=== PATIENT | male | born 1980 | race American Indian/Alaskan Native ===

== ENCOUNTER 2016-12-12 01:19 | Emergency (ER) | payer OTHER ==
[2016-12-12 02:27] LABS: Basophils % (Auto) 0.9 % (0.0-1.8); Eosinophils % (Auto) 2.4 % (0.0-4.3); Hematocrit 39.6 % (35.5-45.6); Mean Corpuscular HGB Conc 33 % (32-34); Mean Corpuscular Hemoglobin 28 pg (28-32); Mean Corpuscular Volume 84 fl (84-94); Platelet Count 325 K/mm3 (140-440); Red Blood Count 4.72 M/mm3 (3.65-5.03); Red Cell Distribution Width 14.8 % (13.2-15.2); White Blood Count 8.9 K/mm3 (4.5-11.0)
[2016-12-12 02:33] LABS: Anion Gap 19 mmol/L; Blood Urea Nitrogen 20 mg/dL (9-20); Carbon Dioxide 22 mmol/L (22-30); Chloride 98.6 mmol/L (98-107); Glucose 100 mg/dL (75-100); Potassium 3.8 mmol/L (3.6-5.0); Sodium 136 mmol/L (137-145)
[2016-12-12 05:08] LABS: Urine Drugs of Abuse Note Disclamer
[2016-12-12 05:34] LABS: Bilirubin,Urine NEG (Negative); Blood,Urine NEG (Negative); Ketones,Urine NEG (Negative); Leukocyte Esterase,Urine NEG (Negative); Mucus,Urine 3+ /HPF; Nitrite,Urine NEG (Negative); Urobilinogen,Urine < 2.0 mg/dL (<2.0)
--- NOTE | 2016-12-12 10:18 | Emergency Department Report ---
ED Shortness of Breath HPI - General Chief Complaint: Psych Stated Complaint: MEDICINE CHECK Time Seen by Provider: 12/12/16 10:14 Source: patient Mode of arrival: Ambulatory Limitations: No Limitations - Related Data Allergies Allergy/AdvReac Type Severity Reaction Status Date / Time No Known Allergies Allergy Verified 12/12/16 01:43 ED Review of Systems ROS: Stated complaint: MEDICINE CHECK Other details as noted in HPI Constitutional: denies: chills, fever Eyes: denies: eye pain, eye discharge, vision change ENT: denies: ear pain, throat pain Respiratory: denies: cough, shortness of breath, wheezing Cardiovascular: denies: chest pain, palpitations Endocrine: no symptoms reported Gastrointestinal: denies: abdominal pain, nausea, diarrhea Genitourinary: denies: urgency, dysuria Musculoskeletal: denies: back pain, joint swelling, arthralgia Skin: denies: rash, lesions Neurological: denies: headache, weakness, paresthesias Psychiatric: denies: anxiety, depression Hematological/Lymphatic: denies: easy bleeding, easy bruising ED Past Medical Hx - Past Medical History Previous Medical History?: No - Surgical History Past Surgical History?: No - Social History Smoking Status: Never Smoker Substance Use Type: None ED Physical Exam - General Limitations: No Limitations General appearance: alert, in no apparent distress - Head Head exam: Present: atraumatic, normocephalic - Eye Eye exam: Present: normal appearance. Absent: scleral icterus - ENT ENT exam: Present: mucous membranes moist - Neck Neck exam: Present: normal inspection - Respiratory Respiratory exam: Present: wheezes, accessory muscle use. Absent: normal lung sounds bilaterally, respiratory distress - Cardiovascular Cardiovascular Exam: Present: regular rate, normal rhythm. Absent: systolic murmur, diastolic murmur, rubs, gallop - GI/Abdominal GI/Abdominal exam: Present: soft, normal bowel sounds. Absent: distended, tenderness, guarding, rebound, rigid - Rectal Rectal exam: Present: deferred - Extremities Exam Extremities exam: Present: normal inspection, normal capillary refill. Absent: tenderness, pedal edema, joint swelling, calf tenderness - Back Exam Back exam: Present: normal inspection - Neurological Exam Neurological exam: Present: alert, oriented X3, CN II-XII intact. Absent: motor sensory deficit - Psychiatric Psychiatric exam: Present: normal affect, anxious - Skin Skin exam: Present: warm, dry, intact, normal color. Absent: rash ED Course Vital Signs 12/12/16 12/12/16 12/12/16 01:43 09:16 10:37 Temperature 98.0 F 97.5 F L Pulse Rate 100 H 86 Respiratory 20 16 18 Rate Blood Pressure 131/97 Blood Pressure 128/76 [Left] O2 Sat by Pulse 97 100 Oximetry - Reevaluation(s) Reevaluation #1: 12/12/16 13:15 ED Medical Decision Making - Lab Data Result diagrams: 12/12/16 01:51 12/12/16 01:51 - EKG Data -: EKG Interpreted by Ne EKG shows normal: sinus rhythm, axis Rate: normal - EKG Data When compared to previous EKG there are: no significant change Interpretation: other (oral T-wave inversions similar to prior) Critical care attestation.: If time is entered above; I have spent that time in minutes in the direct care of this critically ill patient, excluding procedure time. ED Disposition Disposition: ELOPED Condition: Undetermined Referrals: PRIMARY CARE, [Primary Care Provider] - 3-5 Days
[2016-12-12 10:58] LABS: Creatine Kinase MB 8.4 ng/mL (0.0-4.0)
[2016-12-12] MEDS ORDERED: NACL 0.9% 1000 ML 1,000 ML IV ONE ×3 (11:34→16:19)
--- NOTE | 2016-12-12 13:26 | Emergency Department Report ---
ED Psych HPI - General Chief Complaint: Psych Stated Complaint: MEDICINE CHECK Time Seen by Provider: 12/12/16 10:14 Source: patient Mode of arrival: Ambulatory - History of Present Illness Initial Comments: Patient states that he doesn't remember the details of the last more than one day. He does admit that this might be secondary to crack cocaine abuse. He states he was just discharged from [facility]. He is on Invega. He was also given his monthly medication prior to discharge. He states he told the police that he was suicidal. He was brought to this facility for evaluation. At this time he is not complaining of being depressed or actively wanting to hurt himself. Complaint: suicidal ideation -: Gradual, month(s) Associated Psychiatric Symptoms: depression, suicidal ideation History of same: Yes Quality: intermittent Improves With: none Worsens With: none Context: recent drug abuse Associated Symptoms: denies other symptoms - Related Data Allergies Allergy/AdvReac Type Severity Reaction Status Date / Time No Known Allergies Allergy Verified 12/12/16 01:43 ED Review of Systems ROS: Stated complaint: MEDICINE CHECK Other details as noted in HPI Constitutional: denies: chills, fever Eyes: denies: eye pain, eye discharge, vision change ENT: denies: ear pain, throat pain Respiratory: denies: cough, shortness of breath, wheezing Cardiovascular: denies: chest pain, palpitations Endocrine: no symptoms reported Gastrointestinal: denies: abdominal pain, nausea, diarrhea Genitourinary: denies: urgency, dysuria Musculoskeletal: denies: back pain, joint swelling, arthralgia Skin: denies: rash, lesions Neurological: denies: headache, weakness, paresthesias Psychiatric: depression. denies: anxiety Hematological/Lymphatic: denies: easy bleeding, easy bruising ED Past Medical Hx - Past Medical History Previous Medical History?: No - Surgical History Past Surgical History?: No - Social History Smoking Status: Never Smoker Substance Use Type: Cocaine ED Physical Exam - General Limitations: No Limitations General appearance: alert, in no apparent distress - Head Head exam: Present: atraumatic, normocephalic - Eye Eye exam: Present: normal appearance, PERRL, EOMI. Absent: scleral icterus - ENT ENT exam: Present: mucous membranes moist - Neck Neck exam: Present: normal inspection - Respiratory Respiratory exam: Present: normal lung sounds bilaterally. Absent: respiratory distress - Cardiovascular Cardiovascular Exam: Present: regular rate, normal rhythm. Absent: systolic murmur, diastolic murmur, rubs, gallop - GI/Abdominal GI/Abdominal exam: Present: soft, normal bowel sounds. Absent: distended, tenderness, guarding, rebound, rigid - Rectal Rectal exam: Present: deferred - Extremities Exam Extremities exam: Present: normal inspection - Back Exam Back exam: Present: normal inspection - Neurological Exam Neurological exam: Present: alert, oriented X3, CN II-XII intact. Absent: motor sensory deficit - Psychiatric Psychiatric exam: Present: normal affect, normal mood - Skin Skin exam: Present: warm, dry, intact, normal color. Absent: rash ED Course Vital Signs 12/12/16 12/12/16 12/12/16 01:43 09:16 10:37 Temperature 98.0 F 97.5 F L Pulse Rate 100 H 86 Respiratory 20 16 18 Rate Blood Pressure 131/97 Blood Pressure 128/76 [Left] O2 Sat by Pulse 97 100 Oximetry - Reevaluation(s) Reevaluation #1: The patient will be treated with IV fluids overnight until his CK is normal. He will then be medically cleared for whatever disposition the psychiatry planning consultant feels is appropriate. 12/12/16 16:22 ED Medical Decision Making - Lab Data Result diagrams: 12/12/16 01:51 12/12/16 01:51 Laboratory Results - last 24 hr 12/12/16 12/12/16 12/12/16 01:51 01:51 01:51 WBC 8.9 RBC 4.72 Hgb 13.0 Hct 39.6 MCV 84 MCH 28 MCHC 33 RDW 14.8 Plt Count 325 Lymph % (Auto) 33.9 [place] % (Auto) 13.3 H Eos % (Auto) 2.4 Baso % (Auto) 0.9 Lymph # 3.0 [place] # 1.2 H Eos # 0.2 Baso # 0.1 Seg Neutrophils % 49.5 Seg Neutrophils # 4.4 Sodium 136 L Potassium 3.8 Chloride 98.6 Carbon Dioxide 22 Anion Gap 19 BUN 20 Creatinine 1.0 Estimated GFR > 60 BUN/Creatinine Ratio 20.00 Glucose 100 Calcium 9.0 Total Creatine Kinase CK-MB (CK-2) CK-MB (CK-2) Rel Index Urine Color Urine Turbidity Urine pH Ur Specific [place] Urine Protein Urine Glucose (UA) Urine Ketones Urine Blood Urine Nitrite Urine Bilirubin Urine Urobilinogen Ur Leukocyte Esterase Urine WBC (Auto) Urine RBC (Auto) U Epithel Cells (Auto) Hyaline Casts Urine Mucus Urine Opiates Screen Urine Methadone Screen Ur Barbiturates Screen Ur Phencyclidine Scrn Ur Amphetamines Screen U Benzodiazepines Scrn Urine Cocaine Screen U Marijuana (THC) Screen Drugs of Abuse Note Plasma/Serum Alcohol < 0.01 12/12/16 12/12/16 12/12/16 01:51 04:44 04:44 WBC RBC Hgb Hct MCV MCH MCHC RDW Plt Count Lymph % (Auto) [place] % (Auto) Eos % (Auto) Baso % (Auto) Lymph # [place] # Eos # Baso # Seg Neutrophils % Seg Neutrophils # Sodium Potassium Chloride Carbon Dioxide Anion Gap BUN Creatinine Estimated GFR BUN/Creatinine Ratio Glucose Calcium Total Creatine Kinase 2925 H CK-MB (CK-2) 8.4 H CK-MB (CK-2) Rel Index 0.2 Urine Color Yellow Urine Turbidity Clear Urine pH 5.0 Ur Specific [place] 1.035 H Urine Protein 30 mg/dl Urine Glucose (UA) Neg Urine Ketones Neg Urine Blood Neg Urine Nitrite Neg Urine Bilirubin Neg Urine Urobilinogen < 2.0 Ur Leukocyte Esterase Neg Urine WBC (Auto) 3.0 Urine RBC (Auto) 2.0 U Epithel Cells (Auto) < 1.0 Hyaline Casts 1 Urine Mucus 3+ Urine Opiates Screen Presumptive negative Urine Methadone Screen Presumptive negative Ur Barbiturates Screen Presumptive negative Ur Phencyclidine Scrn Presumptive negative Ur Amphetamines Screen Presumptive negative U Benzodiazepines Scrn Presumptive negative Urine Cocaine Screen Presumptive positive U Marijuana (THC) Screen Presumptive negative Drugs of Abuse Note Disclamer Plasma/Serum Alcohol Critical care attestation.: If time is entered above; I have spent that time in minutes in the direct care of this critically ill patient, excluding procedure time. ED Disposition Clinical Impression: Cocaine abuse, Suicidal ideation Rhabdomyolysis Qualifiers: Rhabdomyolysis type: non-traumatic Qualified Code(s): M62.82 - Rhabdomyolysis Depression Qualifiers: Depression Type: unspecified Qualified Code(s): F32.9 - Major depressive disorder, single episode, unspecified Disposition: ELOPED Is pt being admited?: No Does the pt Need Aspirin: No Condition: Undetermined Referrals: PRIMARY CARE, [Primary Care Provider] - 3-5 Days Time of Disposition: 16:22
[2016-12-12 15:06] LABS: Creatine Kinase MB 4.8 ng/mL (0.0-4.0)
[2016-12-13 09:28] LABS: Creatine Kinase MB 3.6 ng/mL (0.0-4.0)
[2016-12-13 09:29] LABS: Anion Gap 14 mmol/L; Blood Urea Nitrogen 9 mg/dL (9-20); Calcium 8.4 mg/dL (8.4-10.2); Carbon Dioxide 24 mmol/L (22-30); Chloride 102.4 mmol/L (98-107); Creatine Kinase 676 units/L (55-170); Glucose 94 mg/dL (75-100); Potassium 4.1 mmol/L (3.6-5.0); Sodium 136 mmol/L (137-145)
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
[2016-12-13] MEDS: COGENTIN PO SCH ×2 (18:45→22:05)
[2016-12-13] MEDS: REMERON PO SCH (22:05)
[2016-12-14] MEDS: COGENTIN PO SCH ×2 (09:41→22:30)
[2016-12-14] MEDS: REMERON PO SCH (22:30)
[2016-12-15] MEDS: COGENTIN PO SCH ×2 (10:47→22:09)
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
[2016-12-15] MEDS: MINIPRESS PO SCH (22:04)
[2016-12-15] MEDS: REMERON PO SCH (22:09)
--- NOTE | 2016-12-16 09:01 | Progress Note ---
Subjective - Reason for Consult Consult date: 12/16/16 Reason for consult: Psychiatry Follow-up - Chief Complaint Chief complaint: "I got some sleep last night" 36 year old AA male seen for psychiatric evaluation in the ER. He was discharged from [facility] one week ago. He was treated for depression and auditory hallucinations. Today patient is calm and cooperative during the assessment. He stated that the SI's has "decreased." He denies AH's and stated that he slept for 6 hours last night. Patient is more engaging and not withdrawn per previous assessment. He denies HI's and AVH's. He rate his depression 3/10, with 10 being the worse. He denies any side effects of his medications. Mental Status Exam - Vital signs Last Vital Signs Temp 98.4 F 12/15/16 20:03 Pulse 87 12/15/16 22:04 Resp 16 12/15/16 20:03 BP 112/86 12/15/16 22:04 Pulse Ox 97 12/15/16 20:03 - Exam Narrative exam: MSE: Appearance: calm, cooperative Behavior: regular eye contact Speech: regular rate and tone Mood: "better" Affect: congruent to mood Thought Process: circumstantial Thought Content: denies HI's and AVH's Motor Activity: ambulatory Cognition: A/O x3 Insight: variable Judgment: variable Assessment and Plan Impression: Historical Dx: Schizoaffective DO, depressed type and PTSD. Substance Use DO (cocaine). Today patient is calm and cooperative during the assessment. No involuntary movement or restlessness noted. Recommendation/Plan: Continue 1013 and transfer to inpatient psychiatric facility. Hold any antipsychotics. He had Invega Sustenna 234mg IM one week ago , his first injection. Continue Cogentin 1 mg PO BID for EPS prevention, Remeron 15 mg PO HS for depression/sleep/PTSD, and Prazosin 1 mg PO HS for PTSD symptoms (nightmares). Discussed the risk/benefits of Invega with patient.
[2016-12-16] MEDS: COGENTIN PO SCH ×2 (09:58→22:15)
[2016-12-16] MEDS: REMERON PO SCH (22:15)
[2016-12-16] MEDS: MINIPRESS PO SCH (22:50)
[2016-12-17] MEDS: COGENTIN PO SCH ×2 (11:45→22:43)
[2016-12-17] MEDS: REMERON PO SCH (22:43)
[2016-12-17] MEDS: MINIPRESS PO SCH (22:43)
--- NOTE | 2016-12-18 11:16 | Progress Note ---
Subjective - Reason for Consult Consult date: 12/18/16 Reason for consult: Psychiatry Follow-up - Chief Complaint Chief complaint: "I am ready to be discharged" 36 year old AA male seen for psychiatric evaluation in the ER. He was discharged from [facility] one week ago. He was treated for depression and auditory hallucinations. Today patient is calm and cooperative during the assessment. He stated that the SI's has "ceased." He stated that he feel "okay" to be discharged and return to residence at [place]. Patient has involuntary movement and reports restlessness. He denies SI/HI's, AVH's, and depression. Mental Status Exam - Vital signs Last Vital Signs Temp 98.4 F 12/17/16 19:50 Pulse 82 12/17/16 19:50 Resp 20 12/17/16 19:50 BP 119/81 12/17/16 19:50 Pulse Ox 100 12/17/16 19:50 - Exam Narrative exam: MSE: Appearance: calm, cooperative Behavior: regular eye contact Speech: regular rate and tone Mood: "okay" Affect: congruent to mood Thought Process: linear Thought Content: denies SI/HI's and AVH's Motor Activity: ambulatory Cognition: A/O x3 Insight: fair Judgment: fair Assessment and Plan Impression: Historical Dx: Schizoaffective DO, depressed type and PTSD. Substance Use DO (cocaine). Today patient is calm and cooperative during the assessment. Observed involuntary movement and restlessness. Recommendation/Plan: Evaluate 1013 in 24 hours to determine proper dispo. Hold any antipsychotics. He had Invega Sustenna 234mg IM one week ago, his first injection. Continue Cogentin 1 mg PO BID for EPS prevention, Remeron 15 mg PO HS for depression/sleep/PTSD, and Prazosin 1 mg PO HS for PTSD symptoms ( nightmares). Start Propanolol 10 mg QAM for Akathisia. Discussed the risk/ benefits of Invega with patient.
[2016-12-18] MEDS: COGENTIN PO SCH ×2 (11:25→22:40)
[2016-12-18] MEDS ORDERED: INDERAL LA PO SCH (15:52)
[2016-12-18] MEDS ORDERED: INDERAL PO SCH (17:30)
[2016-12-18] MEDS: MINIPRESS PO SCH (22:40)
[2016-12-18] MEDS: REMERON PO SCH (22:40)
[2016-12-19] MEDS ORDERED: INDERAL LA PO SCH ×2 (10:00→15:46)
[2016-12-19] MEDS: COGENTIN PO SCH (11:53)
--- NOTE | 2016-12-19 12:29 | Progress Note ---
Subjective - Reason for Consult Consult date: 12/19/16 Reason for consult: Psychhiatry Follow-up - Chief Complaint Chief complaint: "Thanks for everything" 36 year old AA male seen for psychiatric evaluation in the ER. He was discharged from [facility] one week ago. He was treated for depression and auditory hallucinations. Today patient is calm and cooperative during the assessment. He wanted to thank the [facility] staff for being nice to him. He stated that he felt like the staff cared for his "well being." He stated that he would need a referral for outpatient psy/rehab services. He denies SI/HI's, AVH's and depression. He stated that he would like to return to his residence at [place] once discharged. Mental Status Exam - Vital signs Last Vital Signs Temp 98.9 F 12/18/16 22:40 Pulse 55 L 12/18/16 22:40 Resp 16 12/18/16 22:41 BP 101/65 12/18/16 22:40 Pulse Ox 99 12/18/16 22:40 - Exam Narrative exam: MSE: Appearance: calm, cooperative Behavior: regular eye contact Speech: regular rate and tone Mood: "okay" Affect: congruent to mood Thought Process: linear Thought Content: denies SI/HI's and AVH's Motor Activity: ambulatory Cognition: A/O x3 Insight: fair Judgment: fair Assessment and Plan Impression: Historical Dx: Schizoaffective DO, depressed type and PTSD. Substance Use DO (cocaine). Today patient is calm and cooperative during the assessment. No involuntary movement and restlessness. Patient is no threat to self. Recommendation/Plan: Rescind 1013. He had Invega Sustenna 234mg IM one week ago , his first injection. Continue Cogentin 1 mg PO BID for EPS prevention and Remeron 15 mg PO HS for depression/sleep/PTSD. Patient given outpatient psy services information for [facility]. Patient's Invega injection can be managed at [facility].
[2016-12-19 19:08] VITALS: BP 105/70
== END 2016-12-19 19:14 | disposition home or self-care (01) ==
LOC: EEVIPCON 01:19 → ED 01:19
DX: F32.9 Major depressive disorder, single episode, unspecified (principal); M62.82 Rhabdomyolysis; F14.10 Cocaine abuse, uncomplicated
CPT/HCPCS: 36415; 80048; 80307; 81001; 82550; 82553; 85025; 96360; 96361; 99284; G0480; J7030; 80320

== ENCOUNTER 2016-12-22 04:48 | Emergency (ER) | payer SELFPAY ==
--- NOTE | 2016-12-22 07:45 | XRay Report ---
RIGHT ANKLE, 2 views: History: Right ankle pain. Findings: Mild soft tissue swelling is identified. No acute osseous abnormality or joint pathology is identified. The fifth metatarsal base is intact. Impression: Soft tissue swelling. No acute osseous injury.
[2016-12-22] MEDS ORDERED: TORADOL IM ONE (09:19)
--- NOTE | 2016-12-22 09:23 | Emergency Department Report ---
ED Lower Extremity HPI - General Chief Complaint: Extremity Injury, Lower Stated Complaint: RIGHT ANKLE PAIN Time Seen by Provider: 12/22/16 09:08 Source: patient Mode of arrival: Ambulatory Limitations: No Limitations - History of Present Illness Initial Comments: Patient presents here with complaints of injury to right ankle 4 hours prior to arrival. Patient was stepping off a curb and had a misstep resulting in an inversion of his right ankle. Injury to same right ankle 3 weeks ago.. Complaint: ankle injury (right) -: Sudden, hour(s) (4) Injury: Ankle: Right (inversion injury) Type of Injury: inversion Place: street/outdoors Severity: moderate Severity scale (0 -10): 8 Improves With: immobilization Worsens With: weight bearing, movement, palpation Associated Symptoms: swelling, able to partially bear weight - Related Data Previous Rx's Medication Instructions Recorded Last Taken Type Benztropine [Cogentin] 1 mg PO BID #60 tab 12/19/16 Unknown Rx Mirtazapine [Remeron] 15 mg PO QHS #30 tablet 12/19/16 Unknown Rx Butenafine HCl [Lotrimin Ultra] 30 gm TP BID #1 tube 12/22/16 Unknown Rx Ibuprofen [Motrin 800 MG tab] 800 mg PO Q8HR PRN #30 tablet 12/22/16 Unknown Rx Methocarbamol [Robaxin TAB] 1,500 mg PO Q8H #30 tablet 12/22/16 Unknown Rx Allergies Allergy/AdvReac Type Severity Reaction Status Date / Time No Known Allergies Allergy Verified 12/12/16 01:43 ED Review of Systems ROS: Stated complaint: RIGHT ANKLE PAIN Other details as noted in HPI Comment: All other systems reviewed and negative Constitutional: denies: chills, fever, malaise Eyes: denies: eye pain, eye discharge, vision change ENT: denies: throat pain, dental pain, hearing loss Respiratory: denies: cough, shortness of breath, SOB with exertion Cardiovascular: denies: chest pain, palpitations, dyspnea on exertion, edema Endocrine: no symptoms reported Gastrointestinal: denies: nausea, vomiting, diarrhea, constipation Genitourinary: denies: dysuria Musculoskeletal: as per HPI, joint swelling (rt ankle). denies: back pain, myalgia Skin: denies: lesions, change in hair/nails Neurological: denies: weakness, numbness, paresthesias ED Past Medical Hx - Past Medical History Hx Pulmonary Embolism: No Hx GERD: No Hx Renal Disease: No Hx of Cancer: No Hx Sickle Cell Disease: No Hx Arthritis: Yes Hx Headaches / Migraines: No Hx Psychiatric Treatment: Yes (Anxiety, PTSD, Schizophrenia) - Surgical History Past Surgical History?: No - Social History Smoking Status: Current Every Day Smoker Substance Use Type: None - Medications Home Medications: Home Medications Medication Instructions Recorded Confirmed Last Taken Type Benztropine [Cogentin] 1 mg PO BID #60 tab 12/19/16 Unknown Rx Mirtazapine [Remeron] 15 mg PO QHS #30 tablet 12/19/16 Unknown Rx Butenafine HCl [Lotrimin Ultra] 30 gm TP BID #1 tube 12/22/16 Unknown Rx Ibuprofen [Motrin 800 MG tab] 800 mg PO Q8HR PRN #30 tablet 12/22/16 Unknown Rx Methocarbamol [Robaxin TAB] 1,500 mg PO Q8H #30 tablet 12/22/16 Unknown Rx ED Physical Exam - General Limitations: No Limitations General appearance: alert, in distress (mild to moderate distress) - Head Head exam: Present: atraumatic, normocephalic, normal inspection - Eye Eye exam: Present: normal appearance, PERRL - ENT ENT exam: Present: normal exam, normal orophraynx, mucous membranes moist - Neck Neck exam: Present: normal inspection, full ROM. Absent: tenderness, meningismus, lymphadenopathy - Respiratory Respiratory exam: Present: normal lung sounds bilaterally. Absent: respiratory distress, wheezes, rales - Cardiovascular Cardiovascular Exam: Present: regular rate, normal rhythm, normal heart sounds. Absent: bradycardia, systolic murmur, diastolic murmur - GI/Abdominal GI/Abdominal exam: Present: soft, normal bowel sounds. Absent: tenderness, guarding, rebound, rigid, organomegaly, bruit, pulsatile mass - Rectal Rectal exam: Present: deferred - Expanded Lower Extremity Exam Right Hip exam: Present: normal inspection, full ROM. Absent: tenderness, laceration , ecchymosis, deformity Upper Leg exam: Present: normal inspection, full ROM. Absent: abrasion, laceration Knee exam: Present: normal inspection, full ROM. Absent: tenderness, swelling, dislocation, erythema, effusion Lower Leg exam: Present: normal inspection, full ROM. Absent: tenderness, laceration, ecchymosis Ankle exam: Present: tenderness, swelling. Absent: abrasion, ecchymosis Foot/Toe exam: Present: normal inspection, full ROM. Absent: tenderness, swelling, dislocation Neuro vascular tendon exam: Present: no vascular compromise Gait: Positive: not tested/not observed - Back Exam Back exam: Present: normal inspection, full ROM. Absent: tenderness, CVA tenderness (L), muscle spasm - Neurological Exam Neurological exam: Present: alert, oriented X3, CN II-XII intact ED Course Vital Signs 12/22/16 05:23 Temperature 98.2 F Pulse Rate 95 H Respiratory 18 Rate Blood Pressure 113/77 O2 Sat by Pulse 97 Oximetry - Reevaluation(s) Reevaluation #1: 12/22/16 10:46 slightly better Critical Care Time: No Critical care attestation.: If time is entered above; I have spent that time in minutes in the direct care of this critically ill patient, excluding procedure time. ED Disposition Clinical Impression: Inversion sprain of right ankle, Athletes foot Is pt being admited?: No Does the pt Need Aspirin: No Condition: Stable Instructions: Ankle Sprain (ED), Crutch Instructions (ED), Tinea Pedis (ED) Additional Instructions: Nonweight bearing on your right ankle use crutches for gait support. Follow with orthopedic surgeon. Prescriptions: Butenafine HCl [Lotrimin Ultra] 30 gm TP BID #1 tube Ibuprofen [Motrin 800 MG tab] 800 mg PO Q8HR PRN #30 tablet PRN Reason: Pain, Moderate (4-6) Methocarbamol [Robaxin TAB] 1,500 mg PO Q8H #30 tablet Referrals: LAVINIA RIVERA MD [Staff Physician] - 3-5 Days (Call office for an appointment) PRIMARY MD JONES [Primary Care Provider] - 3-5 Days Time of Disposition: 10:49
[2016-12-22] MEDS: ROBAXIN PO SCH ×3 (09:45→10:08)
[2016-12-22 11:35] VITALS: BP 114/77
== END 2016-12-22 11:41 | disposition home or self-care (01) ==
LOC: ED 04:48
DX: S93.401A Sprain of unspecified ligament of right ankle, initial encounter (principal); B35.3 Tinea pedis; M19.90 Unspecified osteoarthritis, unspecified site; F17.200 Nicotine dependence, unspecified, uncomplicated; X58.XXXA Exposure to other specified factors, initial encounter; Y93.89 Activity, other specified; Y99.9 Unspecified external cause status; Y92.89 Other specified places as the place of occurrence of the external cause
CPT/HCPCS: 29515; 73600; 96372; 99283; J1885

== ENCOUNTER → 2017-01-17 | Emergency (ER) | payer OTHER ==
[~2017-01-17] MED LIST: BENADRYL PO ONE; BENADRYL PO PRN; COGENTIN PO ONE; RisperDAL PO SCH
--- NOTE | 2017-01-17 12:13 | Emergency Department Report ---
<ANETA ARMENDARIZ - Last Filed: 01/17/17 13:56> ED Psych HPI - General Chief Complaint: Psych Stated Complaint: 1013 Time Seen by Provider: 01/17/17 12:09 Source: patient, police Mode of arrival: Ambulatory Limitations: No Limitations - History of Present Illness Initial Comments: 36YO MALE WITH H/O PTSD, SCHIZOAFFECTIVE DISORDER, ANXIETY HERE WITH C/O SUICIDAL IDEATION AND DEPRESSION FOR MORE THAN 3 DAYS. PT STATED THAT HE WAS RECENTLY HOSPITALIZED AND NEED TO BE READMITTED. HE ADMITS TO AUDITORY AND VISUAL HALLUCINATIONS. WILL KILL HIMSELF BUT HAS NOT DEFINITE PLANS OF WHAT HE WILL USE. MD Complaint: suicidal ideation, feels depressed -: Gradual, days(s) (3) Associated Psychiatric Symptoms: depression, suicidal ideation, auditory hallucinations, visual hallucinations History of same: Yes Quality: constant Improves With: medication Worsens With: none Context: recent drug abuse Associated Symptoms: denies other symptoms Treatments Prior to Arrival: none - Related Data Previous Rx's Medication Instructions Recorded Last Taken Type Benztropine [Cogentin] 1 mg PO BID #60 tab 12/19/16 Unknown Rx Mirtazapine [Remeron] 15 mg PO QHS #30 tablet 12/19/16 Unknown Rx Butenafine HCl [Lotrimin Ultra] 30 gm TP BID #1 tube 12/22/16 Unknown Rx Ibuprofen [Motrin 800 MG tab] 800 mg PO Q8HR PRN #30 tablet 12/22/16 Unknown Rx Methocarbamol [Robaxin TAB] 1,500 mg PO Q8H #30 tablet 12/22/16 Unknown Rx Benztropine [Cogentin] 1 mg PO HS #30 tab 01/14/17 Unknown Rx Gabapentin [Neurontin] 300 mg PO Q8HR #60 capsule 01/14/17 Unknown Rx Mirtazapine [Remeron] 7.5 mg PO HS #30 tablet 01/14/17 Unknown Rx risperiDONE [RisperDAL] 3 mg PO HS #30 tablet 01/14/17 Unknown Rx Allergies Allergy/AdvReac Type Severity Reaction Status Date / Time No Known Allergies Allergy Verified 12/12/16 01:43 ED Review of Systems ROS: Stated complaint: 1013 Other details as noted in HPI Constitutional: denies: chills, fever Eyes: denies: eye pain, eye discharge, vision change ENT: denies: ear pain, throat pain Respiratory: denies: cough, shortness of breath, wheezing Cardiovascular: denies: chest pain, palpitations Endocrine: no symptoms reported Gastrointestinal: denies: abdominal pain, nausea, diarrhea Genitourinary: denies: urgency, dysuria Musculoskeletal: denies: back pain, joint swelling, arthralgia Skin: denies: rash, lesions Neurological: denies: headache, weakness, paresthesias Psychiatric: denies: anxiety, depression Hematological/Lymphatic: denies: easy bleeding, easy bruising ED Past Medical Hx - Past Medical History Hx Pulmonary Embolism: No Hx GERD: No Hx Renal Disease: No Hx Sickle Cell Disease: No Hx Arthritis: Yes Hx Headaches / Migraines: No Hx Psychiatric Treatment: Yes (Anxiety, PTSD, Schizophrenia) - Social History Smoking Status: Current Every Day Smoker Substance Use Type: Alcohol - Medications Home Medications: Home Medications Medication Instructions Recorded Confirmed Last Taken Type Benztropine [Cogentin] 1 mg PO BID #60 tab 12/19/16 01/10/17 Unknown Rx Mirtazapine [Remeron] 15 mg PO QHS #30 tablet 12/19/16 01/10/17 Unknown Rx Butenafine HCl [Lotrimin Ultra] 30 gm TP BID #1 tube 12/22/16 01/10/17 Unknown Rx Ibuprofen [Motrin 800 MG tab] 800 mg PO Q8HR PRN #30 tablet 12/22/16 01/10/17 Unknown Rx Methocarbamol [Robaxin TAB] 1,500 mg PO Q8H #30 tablet 12/22/16 01/10/17 Unknown Rx Benztropine [Cogentin] 1 mg PO HS #30 tab 01/14/17 Unknown Rx Gabapentin [Neurontin] 300 mg PO Q8HR #60 capsule 01/14/17 Unknown Rx Mirtazapine [Remeron] 7.5 mg PO HS #30 tablet 01/14/17 Unknown Rx risperiDONE [RisperDAL] 3 mg PO HS #30 tablet 01/14/17 Unknown Rx ED Physical Exam - General Limitations: No Limitations General appearance: alert, in no apparent distress - Head Head exam: Present: atraumatic, normocephalic - Eye Eye exam: Present: normal appearance - ENT ENT exam: Present: mucous membranes moist - Neck Neck exam: Present: normal inspection - Respiratory Respiratory exam: Present: normal lung sounds bilaterally. Absent: respiratory distress - Cardiovascular Cardiovascular Exam: Present: regular rate, normal rhythm. Absent: systolic murmur, diastolic murmur, rubs, gallop - GI/Abdominal GI/Abdominal exam: Present: soft, normal bowel sounds - Rectal Rectal exam: Present: deferred - Extremities Exam Extremities exam: Present: normal inspection, full ROM - Back Exam Back exam: Present: normal inspection - Neurological Exam Neurological exam: Present: alert, oriented X3, CN II-XII intact - Psychiatric Psychiatric exam: Present: normal affect, depressed, flat affect, other (NOT VERY COOPERATIVE). Absent: normal mood - Skin Skin exam: Present: warm, dry, intact, normal color. Absent: rash ED Course Vital Signs 01/17/17 01/17/17 01/17/17 08:22 09:00 16:19 Temperature 98.4 F 98.4 F Pulse Rate 86 86 Respiratory 18 18 20 Rate Blood Pressure 100/58 Blood Pressure 100/58 [Left] O2 Sat by Pulse 100 100 100 Oximetry Critical care attestation.: If time is entered above; I have spent that time in minutes in the direct care of this critically ill patient, excluding procedure time. ED Disposition Clinical Impression: Suicidal ideations, Psychosis Disposition: [id number]/TX-[id number] PSY HOSP/PSY UNIT Is pt being admited?: Yes Does the pt Need Aspirin: No Condition: Stable Referrals: PRIMARY CARE, [Primary Care Provider] - 3-5 Days <ARIANA PELAYO - Last Filed: 01/17/17 17:36> ED Course - Reevaluation(s) Reevaluation #1: 01/17/17 17:35 Patient is medically cleared for psychiatric evaluation ED Medical Decision Making - Lab Data Result diagrams: 01/17/17 15:31 01/17/17 15:31 Critical Care Time: No ED Disposition Is pt being admited?: Yes Does the pt Need Aspirin: No Time of Disposition: 17:36
[2017-01-17 15:59] LABS: Hematocrit 41.1 % (35.5-45.6); Hemoglobin 13.1 gm/dl (11.8-15.2); Mean Corpuscular HGB Conc 32 % (32-34); Mean Corpuscular Hemoglobin 27 pg (28-32); Mean Corpuscular Volume 84 fl (84-94); Platelet Count 294 K/mm3 (140-440); Red Blood Count 4.87 M/mm3 (3.65-5.03); Red Cell Distribution Width 14.4 % (13.2-15.2); White Blood Count 5.9 K/mm3 (4.5-11.0)
[2017-01-17 16:07] LABS: Urine Drugs of Abuse Note Disclamer
[2017-01-17 16:20] LABS: Bilirubin,Urine NEG (Negative); Blood,Urine NEG (Negative); Ketones,Urine NEG (Negative); Leukocyte Esterase,Urine NEG (Negative); Mucus,Urine 3+ /HPF; Nitrite,Urine NEG (Negative); Protein,Urine <15 mg/dL mg/dL (Negative)
[2017-01-17 16:44] LABS: Alanine Aminotransferase 21 units/L (7-56); Albumin 3.9 g/dL (3.9-5); Albumin/Globulin Ratio 1.4 %; Alkaline Phosphatase 86 units/L (35-129); Anion Gap 15 mmol/L; BUN/Creatinine Ratio 16; Blood Urea Nitrogen 16 mg/dL (9-20); Calcium 8.9 mg/dL (8.4-10.2); Carbon Dioxide 28 mmol/L (22-30); Glucose 98 mg/dL (75-100); Potassium 4.4 mmol/L (3.6-5.0); Sodium 141 mmol/L (137-145); Total Protein 6.6 g/dL (6.3-8.2)
[2017-01-17 16:56] LABS: Basophils % (Manual) 0 % (0.0-1.8); Blastocytes % (Manual) 0 %
[2017-01-17 17:11] LABS: Diff Status Complete; Ovalocytes 1+; Poikilocytosis Few
--- NOTE | 2017-01-18 16:27 | Consultation ---
History of Present Illness - Reason for Consult Consult date: 01/18/17 Reason for consult: psychiatric evaluation - Chief Complaint Chief complaint: "Walking on ." 36 year old AA male seen for psychiatric evaluation in the ER. He was discharged from [facility] in the middle of November. He then came to 12/12/2016 where he was later discharged back to [facility]. Currently he reports suicidal ideation and was found by police walking in traffic on . He reports AH telling him to harm himself. He states he will have to leave [facility] because the person in charge of the unit can no longer have clients. He states he cannot get to his appointments for his medications. He is 10 days past due for Invega Sustenna. He reports being previously diagnosed with schizoaffective disorder, depressed type. Urine drug screen is positive for cocaine and was during his november visit as well. - Past Medical History Past Medical History: No medical history - past Psychiatric treatment and history psychiatric treatment history: He was at 12/12/2016 for mental health reasons. He was trying to get his second Invega Sustenna injection. multiple hospitalizations and suicide attempts multiple past medication trials; zyprexa was helpful - Social History Social history: resides at [facility]. uses cocaine - Exam Orientation: time, place, person Affect: depressed Mood: congruent with affect Thought content: paranoia, suicidal ideation. No HI Thought Process: logical Perceptions: AH to harm himself Speech: normal rate and pattern Concentration: focused Motor activity: WNL Level of consciousness: alert Memory: Recent Impaired Sleep Symptoms: Insomnia Appetite: decreased Interaction: cooperative Assessment and plan: Impression: suicidal ideation with a plan cocaine use d/o per the record schizoaffective disorder, depressed type by history Recommendation: 1013 and transfer to inpatient psychiatric facility He is 10 days overdue for Invega Sustenna Start risperdal 3mg hs for psychotic symptoms and remeron 7.5mg hs for sleep Start benadryl 50mg hs prn sleep or eps symptoms Medications and Allergies Allergies Allergy/AdvReac Type Severity Reaction Status Date / Time No Known Allergies Allergy Verified 12/12/16 01:43 Home Medications Medication Instructions Recorded Confirmed Last Taken Type Benztropine [Cogentin] 1 mg PO BID #60 tab 12/19/16 01/10/17 Unknown Rx Mirtazapine [Remeron] 15 mg PO QHS #30 tablet 12/19/16 01/10/17 Unknown Rx Butenafine HCl [Lotrimin Ultra] 30 gm TP BID #1 tube 12/22/16 01/10/17 Unknown Rx Ibuprofen [Motrin 800 MG tab] 800 mg PO Q8HR PRN #30 tablet 12/22/16 01/10/17 Unknown Rx Methocarbamol [Robaxin TAB] 1,500 mg PO Q8H #30 tablet 12/22/16 01/10/17 Unknown Rx Benztropine [Cogentin] 1 mg PO HS #30 tab 01/14/17 Unknown Rx Gabapentin [Neurontin] 300 mg PO Q8HR #60 capsule 01/14/17 Unknown Rx Mirtazapine [Remeron] 7.5 mg PO HS #30 tablet 01/14/17 Unknown Rx risperiDONE [RisperDAL] 3 mg PO HS #30 tablet 01/14/17 Unknown Rx Mental Status Exam - Vital signs Last Vital Signs Temp 98.5 F 01/18/17 08:10 Pulse 76 01/18/17 08:10 Resp 20 01/18/17 08:10 BP 110/57 01/18/17 08:10 Pulse Ox 100 01/18/17 08:10 Results Result Diagrams: 01/17/17 15:31 01/17/17 15:31 Abnormal lab results 01/17/17 01/17/17 Range/Units 15:31 15:31 Lymphocytes % (Manual) 36.0 H (13.4-35.0) % Monocytes % (Manual) 15.0 H (0.0-7.3) % Eosinophils % (Manual) 5.0 H (0.0-4.3) % Monocytes # (Manual) 0.9 H (0.0-0.8) K/mm3 AST 41 H (5-40) units/L All other labs normal.
[2017-01-19] MEDS: REMERON PO SCH ×2 (00:30→22:00)
--- NOTE | 2017-01-19 15:18 | Progress Note ---
Subjective - Reason for Consult Consult date: 01/19/17 Reason for consult: Psychiatry Follow-up - Chief Complaint Chief complaint: "I am not doing well" 36 year old AA male seen for psychiatric evaluation in the ER. He was discharged from [facility] in the middle of November. He then came to 12/12/2016 where he was later discharged back to [facility]. Currently he reports suicidal ideation and was found by police walking [place] traffic on [address] This patient is known to me. Today patient is calm and cooperative during the assessment. He stated that the voices are still active, but decreasing. He stated that they were telling him to kill himself. He still endorse SI's by wanting to walk into ongoing traffic. He denies HI's and VH's. He stated that he is experiencing involuntary LE movement. Mental Status Exam - Vital signs Last Vital Signs Temp 98.7 F 01/19/17 08:59 Pulse 72 01/19/17 08:59 Resp 16 01/19/17 09:00 BP 106/71 01/19/17 08:59 Pulse Ox 99 01/19/17 09:00 - Exam Narrative exam: MSE: Appearance: calm, cooperative Behavior: regular eye contact Speech: regular rate and tone Mood: labile Affect: flat Thought Process: circumstantial Thought Content: denies HI's and VH's Motor Activity: ambulatory, LE involuntary movement Cognition: A/O x3 Insight: variable Judgment: poor Assessment and Plan Impression: Historical Dx: Schizoaffective DO. Unspecified Mood DO with psy features. Substance Use DO (cocaine). Today patient is calm and cooperative during the assessment. Patient experiencing LE involuntary movement (possibly akathisia). DDx: Substance Induced Mood DO Recommendation/Plan: Continue 1013 with placement to inpatient psy services. Modify Risperdal to 1 mg PO HS for mood/psychosis, start Cogentin 0.5 mg PO HS for EPS prevention, and continue Remeron 7.5 mg PO HS for sleep consolidation. Discussed possible metabolic side effects of Risperdal with patient. Discussed possible suicidality/medication induced annita with patient.
[2017-01-19] MEDS: COGENTIN PO SCH (21:59)
[2017-01-19] MEDS: RisperDAL PO SCH (22:00)
--- NOTE | 2017-01-20 11:21 | Progress Note ---
Subjective - Reason for Consult Consult date: 01/20/17 Reason for consult: Psychiatry Follow-up - Chief Complaint Chief complaint: "I am not doing well" 36 year old AA male seen for psychiatric evaluation in the ER. He was discharged from [facility] in the middle of November. He then came to 12/12/2016 where he was later discharged back to [facility]. Currently he reports suicidal ideation and was found by police walking in traffic on [address] This patient is known to me. Today patient is calm and cooperative during the assessment. He stated that the voices are still active, but decreasing. He stated that they were telling him to kill himself. He still endorse SI's by wanting to walk into ongoing traffic. He denies HI's and VH's. He stated that he is experiencing involuntary LE movement. Mental Status Exam - Vital signs Last Vital Signs Temp 98.6 F 01/19/17 20:13 Pulse 70 01/19/17 20:13 Resp 16 01/19/17 20:13 BP 115/76 01/19/17 20:13 Pulse Ox 100 01/19/17 20:13 - Exam Narrative exam: MSE: Appearance: calm, cooperative Behavior: regular eye contact Speech: regular rate and tone Mood: labile Affect: flat Thought Process: circumstantial Thought Content: denies HI's and VH's Motor Activity: ambulatory Cognition: A/O x3 Insight: variable Judgment: poor Assessment and Plan Impression: Historical Dx: Schizoaffective DO. Unspecified Mood DO with psy features. Substance Use DO (cocaine). Today patient is calm and cooperative during the assessment. Patient experiencing LE involuntary movement (possibly akathisia). DDx: Substance Induced Mood DO Recommendation/Plan: Continue 1013 with placement to inpatient psy services. Modify Risperdal to 1 mg PO HS for mood/psychosis, start Cogentin 0.5 mg PO HS for EPS prevention, and continue Remeron 7.5 mg PO HS for sleep consolidation. Discussed possible metabolic side effects of Risperdal with patient. Discussed possible suicidality/medication induced annita with patient.
--- NOTE | 2017-01-20 11:22 | Progress Note ---
Subjective - Reason for Consult Consult date: 01/20/17 Reason for consult: Psychiatry Follow-up - Chief Complaint Chief complaint: "I slept more hours last night" 36 year old AA male seen for psychiatric evaluation in the ER. He was discharged from [facility] in the middle of November. He then came to 12/12/2016 where he was later discharged back to [facility]. Currently he reports suicidal ideation and was found by police walking in traffic on [address]. This patient is known to me. Today patient is calm and cooperative during the assessment. He stated that he slept 5 hours, more than the previous night. He still endorse SI's and AH's. He stated that the voices are telling him to kill himself by walking into ongoing traffic. He denies HI's and VH's. He denies any side effects of his medications. Mental Status Exam - Vital signs Last Vital Signs Temp 98.6 F 01/19/17 20:13 Pulse 70 01/19/17 20:13 Resp 16 01/19/17 20:13 BP 115/76 01/19/17 20:13 Pulse Ox 100 01/19/17 20:13 - Exam Narrative exam: MSE: Appearance: calm, cooperative, disheveled Behavior: regular eye contact Speech: regular rate and tone Mood: labile Affect: flat Thought Process: circumstantial Thought Content: denies HI's and VH's Motor Activity: ambulatory Cognition: A/O x3 Insight: variable Judgment: poor Assessment and Plan Impression: Historical Dx: Schizoaffective DO. Unspecified Mood DO with psy features. Substance Use DO (cocaine). Today patient is calm and cooperative during the assessment. DDx: Substance Induced Mood DO Recommendation/Plan: Continue 1013 with placement to inpatient psy services. Continue Risperdal to 1 mg PO HS for mood/psychosis, Cogentin 0.5 mg PO HS for EPS prevention, and Remeron 7.5 mg PO HS for sleep consolidation. Discussed possible metabolic side effects of Risperdal with patient. Discussed possible suicidality/medication induced annita with patient.
[2017-01-20] MEDS: COGENTIN PO SCH (22:04)
[2017-01-20] MEDS: REMERON PO SCH (22:05)
[2017-01-20] MEDS: RisperDAL PO SCH (22:06)
[2017-01-20 23:54] VITALS: BP 117/72
== END ==
LOC: EEVIPCON 07:52 → ED 07:52
DX: F41.9 Anxiety disorder, unspecified (principal); F20.9 Schizophrenia, unspecified; F17.210 Nicotine dependence, cigarettes, uncomplicated; M19.90 Unspecified osteoarthritis, unspecified site
CPT/HCPCS: 36415; 80053; 80307; 81001; 84439; 84443; 85007; 85025; 99285

== ENCOUNTER 2017-01-30 03:01 | Emergency (ER) | payer SELFPAY ==
[2017-01-30 03:49] LABS: Basophils % (Auto) 0.9 % (0.0-1.8); Eosinophils % (Auto) 3.9 % (0.0-4.3); Hematocrit 42.1 % (35.5-45.6); Hemoglobin 13.7 gm/dl (11.8-15.2); Mean Corpuscular HGB Conc 33 % (32-34); Mean Corpuscular Hemoglobin 28 pg (28-32); Mean Corpuscular Volume 85 fl (84-94); Platelet Count 270 K/mm3 (140-440); Red Blood Count 4.94 M/mm3 (3.65-5.03); Red Cell Distribution Width 14.5 % (13.2-15.2); White Blood Count 7.6 K/mm3 (4.5-11.0)
[2017-01-30 04:04] LABS: Bilirubin,Urine NEG (Negative); Blood,Urine NEG (Negative); Ketones,Urine 20 mg/dL (Negative); Leukocyte Esterase,Urine NEG (Negative); Mucus,Urine 1+ /HPF; Nitrite,Urine NEG (Negative); Protein,Urine <15 mg/dL mg/dL (Negative)
[2017-01-30 04:09] LABS: Anion Gap 19 mmol/L; BUN/Creatinine Ratio 15; Blood Urea Nitrogen 15 mg/dL (9-20); Calcium 9.1 mg/dL (8.4-10.2); Carbon Dioxide 24 mmol/L (22-30); Chloride 96.9 mmol/L (98-107); Glucose 79 mg/dL (75-100); Sodium 136 mmol/L (137-145)
--- NOTE | 2017-01-30 07:28 | Emergency Department Report ---
ED General Adult HPI - General Chief complaint: Chest Pain Stated complaint: CHEST TIGHTNESS Time Seen by Provider: 01/30/17 07:20 Source: patient, EMS, RN notes reviewed Mode of arrival: Ambulatory Limitations: No Limitations - History of Present Illness Initial comments: This is a 36-year-old male. The patient is previously known to this provider. The patient is brought to the hospital by EMS. Patient reported a past medical history of hypertension, schizophrenia, anxiety, PTSD. As per EMS documentation , patient complains of central chest pain for 2 days. Patient reports a recent cocaine binge over the past 3 days. He admits to purchasing and doing "upwards of $700 with [employer]." Patient further was noted to have walked almost 2 miles, from [facility]. Patient denies headache, neck pain, abdominal pain, shortness of breath, vomiting, diaphoresis. He denies homicidality and suicidality. He has no other complaints at this time. He is requesting detox. His chest pain has no exacerbating or relieving factors. It does not radiate anywhere. -: Gradual Location: chest Severity scale (0 -10): 6 Consistency: intermittent Improves with: none Worsens with: none Associated Symptoms: denies other symptoms - Related Data Previous Rx's Medication Instructions Recorded Last Taken Type Benztropine [Cogentin] 1 mg PO BID #60 tab 12/19/16 Unknown Rx Mirtazapine [Remeron] 15 mg PO QHS #30 tablet 12/19/16 Unknown Rx Butenafine HCl [Lotrimin Ultra] 30 gm TP BID #1 tube 12/22/16 Unknown Rx Ibuprofen [Motrin 800 MG tab] 800 mg PO Q8HR PRN #30 tablet 12/22/16 Unknown Rx Methocarbamol [Robaxin TAB] 1,500 mg PO Q8H #30 tablet 12/22/16 Unknown Rx Benztropine [Cogentin] 1 mg PO HS #30 tab 01/14/17 Unknown Rx Gabapentin [Neurontin] 300 mg PO Q8HR #60 capsule 01/14/17 Unknown Rx Mirtazapine [Remeron] 7.5 mg PO HS #30 tablet 01/14/17 Unknown Rx risperiDONE [RisperDAL] 3 mg PO HS #30 tablet 01/14/17 Unknown Rx Aspirin [Aspirin BABY CHEW TAB] 81 mg PO QDAY #30 tab.chew 01/30/17 Unknown Rx Allergies Allergy/AdvReac Type Severity Reaction Status Date / Time No Known Allergies Allergy Verified 12/12/16 01:43 ED Review of Systems ROS: Stated complaint: CHEST TIGHTNESS Other details as noted in HPI Constitutional: denies: diaphoresis, fever Eyes: denies: vision change ENT: denies: epistaxis Respiratory: denies: cough Cardiovascular: chest pain Gastrointestinal: denies: vomiting Genitourinary: as per HPI Musculoskeletal: denies: arthralgia, myalgia Skin: denies: lesions Neurological: weakness Psychiatric: denies: homicidal thoughts, suicidal thoughts ED Past Medical Hx - Past Medical History Hx Pulmonary Embolism: No Hx GERD: No Hx Renal Disease: No Hx Sickle Cell Disease: No Hx Arthritis: Yes Hx Headaches / Migraines: No Hx Psychiatric Treatment: Yes (Anxiety, PTSD, Schizophrenia) - Social History Smoking Status: Current Every Day Smoker Substance Use Type: Cocaine - Medications Home Medications: Home Medications Medication Instructions Recorded Confirmed Last Taken Type Benztropine [Cogentin] 1 mg PO BID #60 tab 12/19/16 01/20/17 Unknown Rx Mirtazapine [Remeron] 15 mg PO QHS #30 tablet 12/19/16 01/20/17 Unknown Rx Butenafine HCl [Lotrimin Ultra] 30 gm TP BID #1 tube 12/22/16 01/20/17 Unknown Rx Ibuprofen [Motrin 800 MG tab] 800 mg PO Q8HR PRN #30 tablet 12/22/16 01/20/17 Unknown Rx Methocarbamol [Robaxin TAB] 1,500 mg PO Q8H #30 tablet 12/22/16 01/20/17 Unknown Rx Benztropine [Cogentin] 1 mg PO HS #30 tab 01/14/17 01/20/17 Unknown Rx Gabapentin [Neurontin] 300 mg PO Q8HR #60 capsule 01/14/17 01/20/17 Unknown Rx Mirtazapine [Remeron] 7.5 mg PO HS #30 tablet 01/14/17 01/20/17 Unknown Rx risperiDONE [RisperDAL] 3 mg PO HS #30 tablet 01/14/17 01/20/17 Unknown Rx Aspirin [Aspirin BABY CHEW TAB] 81 mg PO QDAY #30 tab.chew 11/10/17 Unknown Rx ED Physical Exam - General Limitations: No Limitations General appearance: alert, in no apparent distress - Head Head exam: Present: atraumatic, normocephalic - Eye Eye exam: Present: normal appearance, PERRL, EOMI, other (visual acuity intact to finger counting, color perception, reading at a close distance). Absent: nystagmus - ENT ENT exam: Present: normal exam, normal orophraynx, mucous membranes moist, normal external ear exam - Neck Neck exam: Present: normal inspection, full ROM - Respiratory Respiratory exam: Present: normal lung sounds bilaterally. Absent: respiratory distress, wheezes, rales, chest wall tenderness - Cardiovascular Cardiovascular Exam: Present: regular rate, normal rhythm, normal heart sounds. Absent: systolic murmur, diastolic murmur, rubs, gallop - GI/Abdominal GI/Abdominal exam: Present: soft, normal bowel sounds. Absent: distended, tenderness, guarding, rebound, rigid, pulsatile mass - Rectal Rectal exam: Present: deferred - Extremities Exam Extremities exam: Present: normal inspection, full ROM, normal capillary refill. Absent: calf tenderness - Back Exam Back exam: Present: normal inspection, full ROM. Absent: tenderness, CVA tenderness (R), paraspinal tenderness, vertebral tenderness - Neurological Exam Neurological exam: Present: alert, oriented X3, other (Extraocular movements intact. Tongue midline. No facial droop. Facial sensation intact to light touch in the V1, V2, V3 distribution bilaterally. 5 and 5 strength in 4 extremities.. Sensation is intact to light touch in 4 extremities.). Absent: motor sensory deficit - Psychiatric Psychiatric exam: Present: normal affect, normal mood. Absent: homicidal ideation, suicidal ideation - Skin Skin exam: Present: warm, dry, intact, normal color. Absent: rash ED Course Vital Signs 01/30/17 01/30/17 01/30/17 03:06 06:30 06:37 Temperature 98.8 F 98.1 F Pulse Rate 100 H 86 86 Respiratory 18 15 19 Rate Blood Pressure 117/79 119/75 Blood Pressure 119/75 [Left] O2 Sat by Pulse 98 99 100 Oximetry 01/30/17 01/30/17 01/30/17 07:00 07:30 08:00 Temperature Pulse Rate 86 90 Respiratory 18 22 Rate Blood Pressure 105/62 113/75 90/41 Blood Pressure [Left] O2 Sat by Pulse 100 98 Oximetry 01/30/17 01/30/17 01/30/17 08:30 09:00 09:30 Temperature Pulse Rate 89 88 75 Respiratory 17 18 20 Rate Blood Pressure 105/58 101/55 92/60 Blood Pressure [Left] O2 Sat by Pulse 98 99 100 Oximetry 01/30/17 01/30/17 10:00 10:30 Temperature Pulse Rate 89 90 Respiratory 17 14 Rate Blood Pressure 99/49 91/52 Blood Pressure [Left] O2 Sat by Pulse 100 100 Oximetry - Reevaluation(s) Reevaluation #1: 01/30/17 07:31 Differential diagnosis, including but not limited to: Acute coronary syndrome, vasospasm, GERD, gastritis, pneumonia, rhabdomyolysis Assessment and plan: 36-year-old male with 2-3 days of central chest pain. Low risk by MEENA score, low risk by heart score, troponin negative 2, EKG morphologically unremarkable 2, patient at low risk for major adverse cardiac event. He is requesting detox at this time. He is very sleepy at this time but is arousable. He does not require or Lou 1013. Serum toxicology and creatinine kinase is pending. We will obtain psychiatric evaluation per patient 's request for detox. At this point in time, given normal vital signs, normal EKG, normal troponin, unremarkable physical exam, patient does not require admission to the hospital for acute coronary syndrome risk stratification. He can follow up with outpatient cardiology. Reevaluation #2: 01/30/17 10:30 Serum toxicology screen negative. The patient is resting comfortably. No episodes of tachycardia. He is sleeping on multiple repeat examinations and does not appear to be in any distress. He declined evaluation from the crisis team. He does not require 1013 at this time. Patient will be discharged at this time, instructed to discontinue cocaine consumption. ED Medical Decision Making - Lab Data Result diagrams: 01/30/17 03:25 01/30/17 03:25 Vital Signs 01/30/17 01/30/17 01/30/17 03:06 06:30 06:37 Temperature 98.8 F 98.1 F Pulse Rate 100 H 86 86 Respiratory 18 15 19 Rate Blood Pressure 117/79 119/75 Blood Pressure 119/75 [Left] O2 Sat by Pulse 98 99 100 Oximetry Lab Results 11/01/0601/30/17 01/30/17 Range/Units 03:25 03:25 03:45 WBC 7.6 (4.5-11.0) K/mm3 RBC 4.94 (3.65-5.03) M/mm3 Hgb 13.7 (11.8-15.2) gm/dl Hct 42.1 (35.5-45.6) % MCV 85 (84-94) fl MCH 28 (28-32) pg MCHC 33 (32-34) % RDW 14.5 (13.2-15.2) % Plt Count 270 (140-440) K/mm3 Lymph % (Auto) 35.2 H (13.4-35.0) % [place] % (Auto) 11.8 H (0.0-7.3) % Eos % (Auto) 3.9 (0.0-4.3) % Baso % (Auto) 0.9 (0.0-1.8) % Lymph # 2.7 (1.2-5.4) K/mm3 [place] # 0.9 H (0.0-0.8) K/mm3 Eos # 0.3 (0.0-0.4) K/mm3 Baso # 0.1 (0.0-0.1) K/mm3 Seg Neutrophils % 48.2 (40.0-70.0) % Seg Neutrophils # 3.7 (1.8-7.7) K/mm3 Sodium 136 L (137-145) mmol/L Potassium 4.0 (3.6-5.0) mmol/L Chloride 96.9 L (98-107) mmol/L Carbon Dioxide 24 (22-30) mmol/L Anion Gap 19 mmol/L BUN 15 (9-20) mg/dL Creatinine 1.0 (0.8-1.5) mg/dL Estimated GFR > 60 ml/min BUN/Creatinine Ratio 15 % Glucose 79 (75-100) mg/dL Calcium 9.1 (8.4-10.2) mg/dL Troponin T < 0.010 (0.00-0.029) ng/mL Urine Color Yellow (Yellow) Urine Turbidity Clear (Clear) Urine pH 5.0 (5.0-7.0) Ur Specific Jackson 1.030 (1.003-1.030) Urine Protein <15 mg/dl (Negative) mg/dL Urine Glucose (UA) Neg (Negative) mg/dL Urine Ketones 20 (Negative) mg/dL Urine Blood Neg (Negative) Urine Nitrite Neg (Negative) Urine Bilirubin Neg (Negative) Urine Urobilinogen 2.0 (<2.0) mg/dL Ur Leukocyte Esterase Neg (Negative) Urine WBC (Auto) 2.0 (0.0-6.0) /HPF Urine RBC (Auto) 1.0 (0.0-6.0) /HPF U Epithel Cells (Auto) < 1.0 (0-13.0) /HPF Urine Mucus 1+ /HPF 01/30/17 Range/Units 06:09 WBC (4.5-11.0) K/mm3 RBC (3.65-5.03) M/mm3 Hgb (11.8-15.2) gm/dl Hct (35.5-45.6) % MCV (84-94) fl MCH (28-32) pg MCHC (32-34) % RDW (13.2-15.2) % Plt Count (140-440) K/mm3 Lymph % (Auto) (13.4-35.0) % [place] % (Auto) (0.0-7.3) % Eos % (Auto) (0.0-4.3) % Baso % (Auto) (0.0-1.8) % Lymph # (1.2-5.4) K/mm3 [place] # (0.0-0.8) K/mm3 Eos # (0.0-0.4) K/mm3 Baso # (0.0-0.1) K/mm3 Seg Neutrophils % (40.0-70.0) % Seg Neutrophils # (1.8-7.7) K/mm3 Sodium (137-145) mmol/L Potassium (3.6-5.0) mmol/L Chloride (98-107) mmol/L Carbon Dioxide (22-30) mmol/L Anion Gap mmol/L BUN (9-20) mg/dL Creatinine (0.8-1.5) mg/dL Estimated GFR ml/min BUN/Creatinine Ratio % Glucose (75-100) mg/dL Calcium (8.4-10.2) mg/dL Troponin T < 0.010 (0.00-0.029) ng/mL Urine Color (Yellow) Urine Turbidity (Clear) Urine pH (5.0-7.0) Ur Specific Jackson (1.003-1.030) Urine Protein (Negative) mg/dL Urine Glucose (UA) (Negative) mg/dL Urine Ketones (Negative) mg/dL Urine Blood (Negative) Urine Nitrite (Negative) Urine Bilirubin (Negative) Urine Urobilinogen (<2.0) mg/dL Ur Leukocyte Esterase (Negative) Urine WBC (Auto) (0.0-6.0) /HPF Urine RBC (Auto) (0.0-6.0) /HPF U Epithel Cells (Auto) (0-13.0) /HPF Urine Mucus /HPF - EKG Data -: EKG Interpreted by Ny - EKG Data 01/30/17 07:33 EKG #1 demonstrates normal sinus, 83 beats per minute, normal axis, QTC 466 ms, not more likely consistent with ST elevation myocardial infarction. EKG #2 was unchanged from prior. - Radiology Data Radiology results: pending Critical care attestation.: If time is entered above; I have spent that time in minutes in the direct care of this critically ill patient, excluding procedure time. ED Disposition Clinical Impression: History of cocaine abuse, Chest tightness Disposition: DC-01 TO HOME OR SELFCARE Is pt being admited?: No Does the pt Need Aspirin: No Condition: Stable Instructions: Chest Pain (ED), Cocaine Abuse (ED) Additional Instructions: Discontinued consumption of cocaine. It is not healthy for you. Follow up with your primary care doctor or electro tech within the next 3-5 days. Follow up with an outpatient mental health professional within the next month. Return to the ER right away with new pain, worsened pain, migration of pain, fevers, chills, lethargy, irritability, confusion, projectile vomiting, change in mental status, inability to tolerate liquid feeds. Take the aspirin medication as directed. Long-term complications of cocaine and consumption include heart attack, stroke, disability, , paralysis, permanent loss of quality of life. Prescriptions: Aspirin [Aspirin BABY CHEW TAB] 81 mg PO QDAY #30 tab.chew Referrals: PRIMARY CARE,MD [Primary Care Provider] - 3-5 Days [facility] [Provider Group] - 3-5 Days [facility] [Provider Group] - 3-5 Days [facility] [Outside] - 3-5 Days
--- NOTE | 2017-01-30 08:14 | XRay Report ---
CHEST 2 VIEWS INDICATION: Chest tightness. COMPARISON: None similar. FINDINGS: PA and lateral chest radiographs demonstrate normal cardiomediastinal silhouette. Slight right mid lung scarring. Otherwise clear lungs. Intact bones. CONCLUSION: No acute disease in the chest. Thank you for the opportunity to participate in this patient's care.
[2017-01-30 08:20] LABS: Creatine Kinase 901 units/L (55-170)
[2017-01-30 10:54] VITALS: BP 91/52
== END 2017-01-30 10:54 | disposition home or self-care (01) ==
LOC: ED 03:01
DX: R07.89 Other chest pain (principal); M19.90 Unspecified osteoarthritis, unspecified site; F17.210 Nicotine dependence, cigarettes, uncomplicated
CPT/HCPCS: 36415; 71020; 80048; 81001; 82550; 84484; 85025; 93005; 93010; 99284; G0480; 80320

== ENCOUNTER 2017-02-28 02:45 | Emergency (ER) | payer MEDICAID ==
[2017-02-28 04:18] LABS: Basophils % (Auto) 0.4 % (0.0-1.8); Eosinophils % (Auto) 1.9 % (0.0-4.3); Hematocrit 40.4 % (35.5-45.6); Hemoglobin 13.5 gm/dl (11.8-15.2); Mean Corpuscular HGB Conc 33 % (32-34); Mean Corpuscular Hemoglobin 28 pg (28-32); Mean Corpuscular Volume 84 fl (84-94); Platelet Count 339 K/mm3 (140-440); Red Cell Distribution Width 14.9 % (13.2-15.2); White Blood Count 6.1 K/mm3 (4.5-11.0)
[2017-02-28 04:23] LABS: Anion Gap 23 mmol/L; BUN/Creatinine Ratio 13; Blood Urea Nitrogen 12 mg/dL (9-20); Carbon Dioxide 20 mmol/L (22-30); Chloride 102.3 mmol/L (98-107); Glucose 98 mg/dL (75-100); Potassium 3.8 mmol/L (3.6-5.0); Sodium 141 mmol/L (137-145)
--- NOTE | 2017-02-28 04:26 | Emergency Department Report ---
ED Psych HPI - General Chief Complaint: Psych Stated Complaint: SUICIDAL THOUGHTS Time Seen by Provider: 02/28/17 04:25 Source: patient Mode of arrival: Ambulatory - History of Present Illness Initial Comments: 36 yo male suicidal for a few days with auditory hallucinations. he plans to overdose on his medications which he is totally noncompliant with. MD Complaint: suicidal ideation -: days(s) (3) Associated Psychiatric Symptoms: depression, suicidal ideation, visual hallucinations History of same: Yes Quality: constant Worsens With: none Context: not taking psychiatric Associated Symptoms: denies other symptoms Treatments Prior to Arrival: none If Self Harm: admits thoughts of, has plan, intentional overdose - Related Data Previous Rx's Medication Instructions Recorded Last Taken Type Benztropine [Cogentin] 1 mg PO BID #60 tab 12/19/16 Unknown Rx Mirtazapine [Remeron] 15 mg PO QHS #30 tablet 12/19/16 Unknown Rx Butenafine HCl [Lotrimin Ultra] 30 gm TP BID #1 tube 12/22/16 Unknown Rx Ibuprofen [Motrin 800 MG tab] 800 mg PO Q8HR PRN #30 tablet 12/22/16 Unknown Rx Methocarbamol [Robaxin TAB] 1,500 mg PO Q8H #30 tablet 12/22/16 Unknown Rx Benztropine [Cogentin] 1 mg PO HS #30 tab 01/14/17 Unknown Rx Gabapentin [Neurontin] 300 mg PO Q8HR #60 capsule 01/14/17 Unknown Rx Mirtazapine [Remeron] 7.5 mg PO HS #30 tablet 01/14/17 Unknown Rx risperiDONE [RisperDAL] 3 mg PO HS #30 tablet 01/14/17 Unknown Rx Aspirin [Aspirin BABY CHEW TAB] 81 mg PO QDAY #30 tab.chew 01/30/17 Unknown Rx Allergies Allergy/AdvReac Type Severity Reaction Status Date / Time sertraline [From Zoloft] Allergy Hives Verified 02/28/17 03:30 ED Review of Systems ROS: Stated complaint: SUICIDAL THOUGHTS Other details as noted in HPI Constitutional: denies: chills, fever Eyes: denies: eye pain, eye discharge, vision change ENT: denies: ear pain, throat pain Respiratory: denies: cough, shortness of breath, wheezing Cardiovascular: denies: chest pain, palpitations Endocrine: no symptoms reported Gastrointestinal: denies: abdominal pain, nausea, diarrhea Genitourinary: denies: urgency, dysuria Musculoskeletal: denies: back pain, joint swelling, arthralgia Skin: denies: rash, lesions Neurological: denies: headache, weakness, paresthesias Psychiatric: depression, visual hallucinations. denies: anxiety Hematological/Lymphatic: denies: easy bleeding, easy bruising ED Past Medical Hx - Past Medical History Hx Pulmonary Embolism: No Hx GERD: No Hx Renal Disease: No Hx Sickle Cell Disease: No Hx Arthritis: Yes Hx Headaches / Migraines: No Hx Psychiatric Treatment: Yes (Anxiety, PTSD, Schizophrenia) - Surgical History Past Surgical History?: No - Social History Smoking Status: Current Every Day Smoker Substance Use Type: Marijuana - Medications Home Medications: Home Medications Medication Instructions Recorded Confirmed Last Taken Type Benztropine [Cogentin] 1 mg PO BID #60 tab 12/19/16 01/20/17 Unknown Rx Mirtazapine [Remeron] 15 mg PO QHS #30 tablet 12/19/16 01/20/17 Unknown Rx Butenafine HCl [Lotrimin Ultra] 30 gm TP BID #1 tube 12/22/16 01/20/17 Unknown Rx Ibuprofen [Motrin 800 MG tab] 800 mg PO Q8HR PRN #30 tablet 12/22/16 01/20/17 Unknown Rx Methocarbamol [Robaxin TAB] 1,500 mg PO Q8H #30 tablet 12/22/16 01/20/17 Unknown Rx Benztropine [Cogentin] 1 mg PO HS #30 tab 01/14/17 01/20/17 Unknown Rx Gabapentin [Neurontin] 300 mg PO Q8HR #60 capsule 01/14/17 01/20/17 Unknown Rx Mirtazapine [Remeron] 7.5 mg PO HS #30 tablet 01/14/17 01/20/17 Unknown Rx risperiDONE [RisperDAL] 3 mg PO HS #30 tablet 01/14/17 01/20/17 Unknown Rx Aspirin [Aspirin BABY CHEW TAB] 81 mg PO QDAY #30 tab.chew 01/30/17 Unknown Rx ED Physical Exam - General Limitations: No Limitations General appearance: alert, in no apparent distress - Head Head exam: Present: atraumatic, normocephalic - Eye Eye exam: Present: normal appearance, EOMI - ENT ENT exam: Present: mucous membranes moist - Neck Neck exam: Present: normal inspection - Respiratory Respiratory exam: Present: normal lung sounds bilaterally. Absent: respiratory distress, wheezes, chest wall tenderness, accessory muscle use - Cardiovascular Cardiovascular Exam: Present: regular rate, normal rhythm. Absent: systolic murmur, diastolic murmur, rubs, gallop - GI/Abdominal GI/Abdominal exam: Present: soft, normal bowel sounds - Rectal Rectal exam: Present: deferred - Extremities Exam Extremities exam: Present: normal inspection - Back Exam Back exam: Present: normal inspection, full ROM - Neurological Exam Neurological exam: Present: alert, oriented X3, CN II-XII intact - Psychiatric Psychiatric exam: Present: depressed, flat affect, suicidal ideation - Skin Skin exam: Present: warm, dry, intact, normal color. Absent: rash ED Course Vital Signs 02/28/17 02/28/17 03:23 04:07 Temperature 98 F Pulse Rate 80 Respiratory 16 18 Rate Blood Pressure 134/81 O2 Sat by Pulse 100 Oximetry ED Medical Decision Making - Lab Data Result diagrams: 02/28/17 03:35 02/28/17 03:35 Critical care attestation.: If time is entered above; I have spent that time in minutes in the direct care of this critically ill patient, excluding procedure time. ED Disposition Clinical Impression: Suicidal ideation, Cocaine abuse, Marijuana abuse, Medical clearance for psychiatric admission Depression Qualifiers: Depression Type: unspecified Qualified Code(s): F32.9 - Major depressive disorder, single episode, unspecified Disposition: DC/TX-65 PSY HOSP/PSY UNIT Is pt being admited?: Yes Condition: Stable Referrals: PRIMARY CARE, [Primary Care Provider] - 3-5 Days Time of Disposition: 08:10
[2017-02-28 05:22] LABS: Urine Drugs of Abuse Note Disclamer
[2017-02-28 05:36] LABS: Bilirubin,Urine NEG (Negative); Blood,Urine SM (Negative); Ketones,Urine NEG (Negative); Leukocyte Esterase,Urine NEG (Negative); Mucus,Urine 2+ /HPF; Nitrite,Urine NEG (Negative); Protein,Urine <15 mg/dL mg/dL (Negative); Urobilinogen,Urine < 2.0 mg/dL (<2.0)
--- NOTE | 2017-02-28 17:25 | Consultation ---
History of Present Illness - Reason for Consult Consult date: 02/28/17 Reason for consult: psychiatric evaluation - Chief Complaint Chief complaint: "I was going to overdose." - History of Present Psychiatric Illness 36 year old AA male seen for psychiatric evaluation in the ER. He had 5 ER visits since November for similar mental health complaints. He is currently staying at [facility]. Currently he reports suicidal ideation and overdose. He reports AH telling him to harm himself. He states he cannot get to his appointments for his medications. He is 1 month past due for [facility]. He reports being previously diagnosed with schizoaffective disorder, depressed type. Urine drug screen is positive for cocaine and was during his other visits as well. - Past Medical History Past Medical History: No medical history - past Psychiatric treatment and history psychiatric treatment history: multiple hospitalizations and suicide attempts multiple past medication trials; zyprexa was helpful - Social History Social history: resides [facility]. uses cocaine and marijuana Medications and Allergies Allergies Allergy/AdvReac Type Severity Reaction Status Date / Time sertraline [From Zoloft] Allergy Hives Verified 02/28/17 03:30 Home Medications Medication Instructions Recorded Confirmed Last Taken Type Benztropine [Cogentin] 1 mg PO BID #60 tab 12/19/16 02/28/17 Unknown Rx Mirtazapine [Remeron] 15 mg PO QHS #30 tablet 12/19/16 02/28/17 Unknown Rx Butenafine HCl [Lotrimin Ultra] 30 gm TP BID #1 tube 12/22/16 02/28/17 Unknown Rx Ibuprofen [Motrin 800 MG tab] 800 mg PO Q8HR PRN #30 tablet 12/22/16 02/28/17 Unknown Rx Methocarbamol [Robaxin TAB] 1,500 mg PO Q8H #30 tablet 12/22/16 02/28/17 Unknown Rx Benztropine [Cogentin] 1 mg PO HS #30 tab 01/14/17 02/28/17 Unknown Rx Gabapentin [Neurontin] 300 mg PO Q8HR #60 capsule 01/14/17 02/28/17 Unknown Rx Mirtazapine [Remeron] 7.5 mg PO HS #30 tablet 01/14/17 02/28/17 Unknown Rx risperiDONE [RisperDAL] 3 mg PO HS #30 tablet 01/14/17 02/28/17 Unknown Rx Aspirin [Aspirin BABY CHEW TAB] 81 mg PO QDAY #30 tab.chew 01/30/17 02/28/17 Unknown Rx Mental Status Exam - Vital signs Last Vital Signs Temp 99 F 02/28/17 07:20 Pulse 80 02/28/17 07:20 Resp 18 02/28/17 07:20 BP 128/87 02/28/17 07:20 Pulse Ox 100 02/28/17 07:20 - Exam Narrative exam: Orientation: time, place, person Affect: depressed Mood: congruent with affect Thought content: paranoia, suicidal ideation. No HI Thought Process: logical Perceptions: AH to harm himself Speech: normal rate and pattern Concentration: focused Motor activity: WNL Level of consciousness: alert Memory: Recent Impaired Sleep Symptoms: Insomnia Appetite: decreased Interaction: cooperative Results Result Diagrams: 02/28/17 03:35 02/28/17 03:35 Abnormal lab results 02/28/17 02/28/17 Range/Units 03:35 03:35 Lymph % (Auto) 39.6 H (13.4-35.0) % [place] % (Auto) 13.8 H (0.0-7.3) % Carbon Dioxide 20 L (22-30) mmol/L All other labs normal. Assessment and Plan Assessment and plan: Impression: suicidal ideation with a plan. He wants to find another place to live beside [facility]. cocaine use d/o per the record schizoaffective disorder, depressed type by history He 1 month overdue for his [facility] and is not taking oral medication. Recommendation: 1013 and transfer to inpatient psychiatric facility Start risperdal if not transferred today.
[2017-02-28 17:51] VITALS: BP 133/87
== END 2017-02-28 20:45 ==
LOC: EEVIPCON 02:45 → ED 02:45
DX: F32.9 Major depressive disorder, single episode, unspecified (principal); F12.10 Cannabis abuse, uncomplicated; F14.10 Cocaine abuse, uncomplicated; F20.9 Schizophrenia, unspecified; M19.90 Unspecified osteoarthritis, unspecified site; F41.9 Anxiety disorder, unspecified; F43.10 Post-traumatic stress disorder, unspecified; F17.200 Nicotine dependence, unspecified, uncomplicated; Z88.8 Allergy status to other drugs, medicaments and biological substances; Z79.899 Other long term (current) drug therapy
CPT/HCPCS: 36415; 80048; 80307; 81001; 85025; 99285; G0480; 80320

== ENCOUNTER 2017-03-09 21:40 | Emergency (ER) | payer MEDICAID ==
[2017-03-09 22:36] LABS: Urine Drugs of Abuse Note Disclamer
[2017-03-09 22:39] LABS: BUN/Creatinine Ratio 13; Blood Urea Nitrogen 16 mg/dL (9-20); Calcium 8.8 mg/dL (8.4-10.2); Carbon Dioxide 24 mmol/L (22-30); Chloride 94.8 mmol/L (98-107); Glucose 80 mg/dL (75-100); Sodium 136 mmol/L (137-145)
[2017-03-09 22:46] LABS: Bilirubin,Urine NEG (Negative); Blood,Urine NEG (Negative); Ketones,Urine TR mg/dL (Negative); Leukocyte Esterase,Urine NEG (Negative); Mucus,Urine 3+ /HPF; Nitrite,Urine NEG (Negative)
[2017-03-09 22:53] LABS: Anion Gap 21 mmol/L; Potassium 4.1 mmol/L (3.6-5.0)
[2017-03-09 23:14] LABS: Basophils % (Auto) 0.6 % (0.0-1.8); Eosinophils % (Auto) 1.2 % (0.0-4.3); Hematocrit 39.3 % (35.5-45.6); Hemoglobin 12.8 gm/dl (11.8-15.2); Mean Corpuscular HGB Conc 33 % (32-34); Mean Corpuscular Hemoglobin 27 pg (28-32); Mean Corpuscular Volume 83 fl (84-94); Platelet Count 335 K/mm3 (140-440); Red Blood Count 4.75 M/mm3 (3.65-5.03); Red Cell Distribution Width 14.5 % (13.2-15.2); White Blood Count 7.1 K/mm3 (4.5-11.0)
--- NOTE | 2017-03-09 23:38 | Emergency Department Report ---
HPI - General Chief Complaint: Psych Time Seen by Provider: 03/09/17 23:27 - HPI HPI: [facility] The patient is a 36-year-old male presenting with a chief complaint of suicidal ideation. The patient states he "felt like dying." The patient states he has suicidal ideation recently because he lost his place to live and lost all of his money. The patient denies actually attempting to harm himself states his plan was to overdose on medication if he could get it. The patient states he called police to report his suicidal ideation Location: Mental status Duration: One day Quality: suicidal Severity: Severe Modifying factors: [see above] Context: [see above] Mode of transportation: [not driving] ED Past Medical Hx - Past Medical History Hx Arthritis: Yes Hx Psychiatric Treatment: Yes (Anxiety, PTSD, Schizophrenia) - Surgical History Past Surgical History?: No - Family History Family history: no significant - Social History Smoking Status: Current Every Day Smoker Substance Use Type: Alcohol (rarely), Cocaine - Medications Home Medications: Home Medications Medication Instructions Recorded Confirmed Last Taken Type Benztropine [Cogentin] 1 mg PO BID #60 tab 12/19/16 02/28/17 Unknown Rx Mirtazapine [Remeron] 15 mg PO QHS #30 tablet 12/19/16 02/28/17 Unknown Rx Butenafine HCl [Lotrimin Ultra] 30 gm TP BID #1 tube 12/22/16 02/28/17 Unknown Rx Ibuprofen [Motrin 800 MG tab] 800 mg PO Q8HR PRN #30 tablet 12/22/16 02/28/17 Unknown Rx Methocarbamol [Robaxin TAB] 1,500 mg PO Q8H #30 tablet 12/22/16 02/28/17 Unknown Rx Benztropine [Cogentin] 1 mg PO HS #30 tab 01/14/17 02/28/17 Unknown Rx Gabapentin [Neurontin] 300 mg PO Q8HR #60 capsule 01/14/17 02/28/17 Unknown Rx Mirtazapine [Remeron] 7.5 mg PO HS #30 tablet 01/14/17 02/28/17 Unknown Rx risperiDONE [RisperDAL] 3 mg PO HS #30 tablet 01/14/17 02/28/17 Unknown Rx Aspirin [Aspirin BABY CHEW TAB] 81 mg PO QDAY #30 tab.chew 01/30/17 02/28/17 Unknown Rx ED Review of Systems ROS: Stated complaint: SUICIDAL THOUGHTS Other details as noted in HPI Psychiatric: suicidal thoughts Physical Exam - Physical Exam Vital Signs: Vital Signs 03/09/17 03/09/17 22:01 22:46 Temperature 98.6 F 98 F Pulse Rate 97 H 78 Respiratory 16 18 Rate Blood Pressure 122/76 Blood Pressure 120/74 [Left] O2 Sat by Pulse 97 100 Oximetry Physical Exam: GENERAL: The patient is well-developed well-nourished male lying on stretcher not appearing to be in acute distress. [] HEENT: Normocephalic. Atraumatic. Extraocular motions are intact. Patient has moist mucous membranes. NECK: Supple. Trachea midline CHEST/LUNGS: Clear to auscultation. There is no respiratory distress noted. HEART/CARDIOVASCULAR: Regular. There is no tachycardia. There is no gallop rub or murmur. ABDOMEN: Abdomen is soft, nontender. Patient has normal bowel sounds. There is no abdominal distention. SKIN: There is no rash. There is no edema. There is no diaphoresis. NEURO: The patient is awake, alert, and oriented. The patient is cooperative. The patient has normal speech MUSCULOSKELETAL: There is no evidence of acute injury. ED Course Vital Signs 03/09/17 03/09/17 22:01 22:46 Temperature 98.6 F 98 F Pulse Rate 97 H 78 Respiratory 16 18 Rate Blood Pressure 122/76 Blood Pressure 120/74 [Left] O2 Sat by Pulse 97 100 Oximetry ED Medical Decision Making - Lab Data Result diagrams: 03/09/17 22:50 03/09/17 22:14 Laboratory Tests 03/09/17 03/09/17 03/09/17 22:14 22:14 22:50 WBC 7.1 RBC 4.75 Hgb 12.8 Hct 39.3 MCV 83 L MCH 27 L MCHC 33 RDW 14.5 Plt Count 335 Lymph % (Auto) 27.9 [place] % (Auto) 15.1 H Eos % (Auto) 1.2 Baso % (Auto) 0.6 Lymph # 2.0 [place] # 1.1 H Eos # 0.1 Baso # 0.0 Seg Neutrophils % 55.2 Seg Neutrophils # 3.9 Sodium 136 L Potassium 4.1 Chloride 94.8 L Carbon Dioxide 24 Anion Gap 21 BUN 16 Creatinine 1.2 Estimated GFR > 60 BUN/Creatinine Ratio 13 Glucose 80 Calcium 8.8 Urine Color Urine Turbidity Urine pH Ur Specific [place] Urine Protein Urine Glucose (UA) Urine Ketones Urine Blood Urine Nitrite Urine Bilirubin Urine Urobilinogen Ur Leukocyte Esterase Urine WBC (Auto) Urine RBC (Auto) U Epithel Cells (Auto) Urine Mucus Salicylates Urine Opiates Screen Urine Methadone Screen Acetaminophen Ur Barbiturates Screen Ur Phencyclidine Scrn Ur Amphetamines Screen U Benzodiazepines Scrn Urine Cocaine Screen U Marijuana (THC) Screen Drugs of Abuse Note Plasma/Serum Alcohol < 0.01 03/09/17 03/09/17 03/09/17 23:30 23:30 Unknown WBC RBC Hgb Hct MCV MCH MCHC RDW Plt Count Lymph % (Auto) [place] % (Auto) Eos % (Auto) Baso % (Auto) Lymph # [place] # Eos # Baso # Seg Neutrophils % Seg Neutrophils # Sodium Potassium Chloride Carbon Dioxide Anion Gap BUN Creatinine Estimated GFR BUN/Creatinine Ratio Glucose Calcium Urine Color Yellow Urine Turbidity Clear Urine pH 5.0 Ur Specific [place] 1.033 H Urine Protein 30 mg/dl Urine Glucose (UA) Neg Urine Ketones Tr Urine Blood Neg Urine Nitrite Neg Urine Bilirubin Neg Urine Urobilinogen 2.0 Ur Leukocyte Esterase Neg Urine WBC (Auto) 3.0 Urine RBC (Auto) 5.0 U Epithel Cells (Auto) < 1.0 Urine Mucus 3+ Salicylates < 0.3 L Urine Opiates Screen Urine Methadone Screen Acetaminophen < 15.0 Ur Barbiturates Screen Ur Phencyclidine Scrn Ur Amphetamines Screen U Benzodiazepines Scrn Urine Cocaine Screen U Marijuana (THC) Screen Drugs of Abuse Note Plasma/Serum Alcohol 03/09/17 Unknown WBC RBC Hgb Hct MCV MCH MCHC RDW Plt Count Lymph % (Auto) [place] % (Auto) Eos % (Auto) Baso % (Auto) Lymph # [place] # Eos # Baso # Seg Neutrophils % Seg Neutrophils # Sodium Potassium Chloride Carbon Dioxide Anion Gap BUN Creatinine Estimated GFR BUN/Creatinine Ratio Glucose Calcium Urine Color Urine Turbidity Urine pH Ur Specific [place] Urine Protein Urine Glucose (UA) Urine Ketones Urine Blood Urine Nitrite Urine Bilirubin Urine Urobilinogen Ur Leukocyte Esterase Urine WBC (Auto) Urine RBC (Auto) U Epithel Cells (Auto) Urine Mucus Salicylates Urine Opiates Screen Presumptive negative Urine Methadone Screen Presumptive negative Acetaminophen Ur Barbiturates Screen Presumptive negative Ur Phencyclidine Scrn Presumptive negative Ur Amphetamines Screen Presumptive negative U Benzodiazepines Scrn Presumptive negative Urine Cocaine Screen Presumptive positive U Marijuana (THC) Screen Presumptive negative Drugs of Abuse Note Disclamer Plasma/Serum Alcohol - Differential Diagnosis suicidal ideation Critical care attestation.: If time is entered above; I have spent that time in minutes in the direct care of this critically ill patient, excluding procedure time. ED Disposition Clinical Impression: Suicidal ideation Disposition: DC/TX-65 PSY HOSP/PSY UNIT Is pt being admited?: No Does the pt Need Aspirin: No Condition: Serious Referrals: PRIMARY CARE, [Primary Care Provider] - 3-5 Days Time of Disposition: 23:39 (awaiting acceptance)
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
[2017-03-10 17:31] VITALS: BP 118/72
[2017-03-10] MEDS ORDERED: COGENTIN PO SCH (22:00)
[2017-03-10] MEDS ORDERED: REMERON PO SCH (22:00)
[2017-03-10] MEDS ORDERED: RisperDAL PO SCH (22:00)
== END 2017-03-10 21:05 ==
LOC: ED 21:40 → EEVIPCON 21:40 → ED 03-10 21:05
DX: F32.9 Major depressive disorder, single episode, unspecified (principal); R45.851 Suicidal ideations; F20.9 Schizophrenia, unspecified; F41.9 Anxiety disorder, unspecified; M19.90 Unspecified osteoarthritis, unspecified site; F17.200 Nicotine dependence, unspecified, uncomplicated
CPT/HCPCS: 36415; 80048; 80307; 81001; 85025; 99285; G0480; 80320

== ENCOUNTER 2017-10-08 22:04 | Emergency (ER) | payer MEDICAID ==
[2017-10-08 23:54] LABS: Basophils % (Auto) 0.5 % (0.0-1.8); Eosinophils # (Auto) 0.3 K/mm3 (0.0-0.4); Eosinophils % (Auto) 3.6 % (0.0-4.3); Hematocrit 44.9 % (35.5-45.6); Hemoglobin 14.8 gm/dl (11.8-15.2); Lymphocytes # (Auto) 2.8 K/mm3 (1.2-5.4); Lymphocytes % (Auto) 37.2 % (13.4-35.0); Mean Corpuscular HGB Conc 33 % (32-34); Mean Corpuscular Hemoglobin 29 pg (28-32); Mean Corpuscular Volume 87 fl (84-94); Monocytes # (Auto) 0.9 K/mm3 (0.0-0.8); Monocytes % (Auto) 11.6 % (0.0-7.3); Platelet Count 361 K/mm3 (140-440); Red Blood Count 5.17 M/mm3 (3.65-5.03); Red Cell Distribution Width 14.2 % (13.2-15.2)
[2017-10-09 00:06] LABS: BUN/Creatinine Ratio 15; Blood Urea Nitrogen 17 mg/dL (9-20); Calcium 9.6 mg/dL (8.4-10.2); Hemolysis Index 5
[2017-10-09 01:05] LABS: Amphetamine Screen,Urine PRESUMPTIVE NEGATIVE; Benzodiazepines Screen,Urine PRESUMPTIVE NEGATIVE; Bilirubin,Urine NEG (Negative); Blood,Urine NEG (Negative); Calcium Oxalate Crystals,Urine 2+; Color,Urine Yellow (Yellow); Methadone Screen,Urine PRESUMPTIVE NEGATIVE; Mucus,Urine 2+ /HPF; Opiate Screen,Urine PRESUMPTIVE NEGATIVE; Protein,Urine <15 mg/dL mg/dL (Negative); Urobilinogen,Urine < 2.0 mg/dL (<2.0)
[2017-10-09 01:50] LABS: Cannabinoid Screen,Urine PRESUMPTIVE POSITIVE; Cocaine Screen,Urine PRESUMPTIVE POSITIVE
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
[2017-10-09] MEDS ORDERED: RisperDAL PO SCH (15:00)
[2017-10-09] MEDS ORDERED: COGENTIN PO SCH (15:00)
[2017-10-09 19:33] VITALS: BP 154/78
== END 2017-10-09 16:00 ==
LOC: ED 22:04 → EEVIPCON 22:04 → ED 10-09 16:00
DX: F32.9 Major depressive disorder, single episode, unspecified (principal); F20.9 Schizophrenia, unspecified; F41.9 Anxiety disorder, unspecified; M19.90 Unspecified osteoarthritis, unspecified site; F17.200 Nicotine dependence, unspecified, uncomplicated; F12.10 Cannabis abuse, uncomplicated; F14.10 Cocaine abuse, uncomplicated; Z88.8 Allergy status to other drugs, medicaments and biological substances; Z79.82 Long term (current) use of aspirin
CPT/HCPCS: 36415; 80048; 80307; 81001; 85025; 99285; G0480; 80320

== ENCOUNTER 2017-12-09 00:59 | Emergency (ER) | payer MEDICAID | END 2017-12-09 01:00 | disposition left against medical advice (07) | LOC: ED 00:59 | DX: L29.9 Pruritus, unspecified (principal); Z53.21 Procedure and treatment not carried out due to patient leaving prior to being seen by health care provider ==

== ENCOUNTER 2018-12-06 14:52 | Emergency (ER) | payer MEDICAID ==
--- NOTE | 2018-12-06 15:13 | Event Note ---
ED Screening Note ED Screening Note: has been walking states he has not taken his invega injection in 13 days was supposed to be seen by the [facility] today no N/V/D states he feels like he has "dehydration" and states that he feels like he is cramping up from frequent walking +cocaine use This initial assessment/diagnostic orders/clinical plan/treatment(s) is/are subject to change based on patients health status, clinical progression and re- assessment by fellow clinical providers in the ED. Further treatment and workup at subsequent clinical providers discretion. Patient/guardian urged not to elope from the ED as their condition may be serious if not clinically assessed and managed. Initial orders include: labs
[2018-12-06 15:14] VITALS: BP 99/68
[2018-12-06 15:51] LABS: Basophils # (Auto) 0.1 K/mm3 (0.0-0.1); Basophils % (Auto) 0.8 % (0.0-1.8); Hematocrit 47.4 % (35.5-45.6); Hemoglobin 15.9 gm/dl (11.8-15.2); Lymphocytes # (Auto) 2.9 K/mm3 (1.2-5.4); Lymphocytes % (Auto) 29.1 % (13.4-35.0); Mean Corpuscular HGB Conc 34 % (32-34); Mean Corpuscular Volume 83 fl (84-94); Monocytes # (Auto) 1.5 K/mm3 (0.0-0.8); Monocytes % (Auto) 15.5 % (0.0-7.3); Platelet Count 381 K/mm3 (140-440); Red Blood Count 5.68 M/mm3 (3.65-5.03); Red Cell Distribution Width 14.9 % (13.2-15.2)
[2018-12-06 16:09] LABS: Bilirubin,Urine NEG (Negative); Blood,Urine SM (Negative); Color,Urine Amber (Yellow); Granular Casts,Urine 31 /LPF; Hyaline Casts,Urine 11 /LPF; Mucus,Urine 2+ /HPF
[2018-12-06 16:14] LABS: Albumin 5.3 g/dL (3.9-5); Calcium 10.9 mg/dL (8.4-10.2)
--- NOTE | 2018-12-06 21:52 | Emergency Department Report ---
Blank Doc - Documentation Documentation: pt eloped from the emergency department prior to labwork being completed and p rior to examination by MD, pts labs reviewed and CK is severely elevated, and Cr is 3.6, pts cellphone called and his voicemail box was full, pts emergency contact called by RONNIE cueto, and discussed that pt needed to return to the emergency room immediately and if unable to get a ride then to call 911, details were not given but stressed the importance of pt returning due to being sick, pts emergency contact stated she would call his family members and have pt return to hospital.
== END 2018-12-06 21:00 | disposition left against medical advice (07) ==
LOC: ED 14:52
DX: E86.0 Dehydration (principal); R25.2 Cramp and spasm; Z53.21 Procedure and treatment not carried out due to patient leaving prior to being seen by health care provider
CPT/HCPCS: 36415; 80053; 81001; 82550; 85025

== ENCOUNTER 2018-12-28 17:05 | Emergency (ER) | payer MEDICAID ==
--- NOTE | 2018-12-28 18:01 | Event Note ---
ED Screening Note Date of service: 12/28/18 Time: 17:55 ED Screening Note: 38 y o male presents to ed wanting cocaine detox This initial assessment/diagnostic orders/clinical plan/treatment(s) is/are subject to change based on patients health status, clinical progression and re- assessment by fellow clinical providers in the ED. Further treatment and workup at subsequent clinical providers discretion. Patient/guardian urged not to elope from the ED as their condition may be serious if not clinically assessed and managed. uds, labs eval
[2018-12-28 19:33] LABS: Basophils # (Auto) 0.1 K/mm3 (0.0-0.1); Basophils % (Auto) 0.8 % (0.0-1.8); Eosinophils # (Auto) 0.2 K/mm3 (0.0-0.4); Hematocrit 36.1 % (35.5-45.6); Hemoglobin 11.9 gm/dl (11.8-15.2); Lymphocytes # (Auto) 2.1 K/mm3 (1.2-5.4); Lymphocytes % (Auto) 26.6 % (13.4-35.0); Mean Corpuscular HGB Conc 33 % (32-34); Mean Corpuscular Volume 84 fl (84-94); Monocytes % (Auto) 13.3 % (0.0-7.3); Platelet Count 303 K/mm3 (140-440); Red Blood Count 4.29 M/mm3 (3.65-5.03); Red Cell Distribution Width 14.3 % (13.2-15.2)
[2018-12-28 19:45] LABS: Bilirubin,Urine NEG (Negative); Blood,Urine NEG (Negative); Color,Urine Yellow (Yellow); Mucus,Urine 3+ /HPF; Protein,Urine <15 mg/dL mg/dL (Negative)
[2018-12-28 19:45] LABS: BUN/Creatinine Ratio 19; Blood Urea Nitrogen 17 mg/dL (9-20); Calcium 8.8 mg/dL (8.4-10.2); Hemolysis Index 1
[2018-12-28 19:54] LABS: Amphetamine Screen,Urine PRESUMPTIVE NEGATIVE; Cannabinoid Screen,Urine PRESUMPTIVE NEGATIVE; Methadone Screen,Urine PRESUMPTIVE NEGATIVE; Opiate Screen,Urine PRESUMPTIVE NEGATIVE
[2018-12-28 20:14] LABS: Benzodiazepines Screen,Urine PRESUMPTIVE POSITIVE; Cocaine Screen,Urine PRESUMPTIVE POSITIVE
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
[2018-12-29 01:28] VITALS: BP 105/62
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
== END 2018-12-29 03:42 ==
LOC: EEVIPCON 17:05 → ED 17:05
DX: R45.851 Suicidal ideations (principal); F32.9 Major depressive disorder, single episode, unspecified; F41.9 Anxiety disorder, unspecified; F43.10 Post-traumatic stress disorder, unspecified; M19.90 Unspecified osteoarthritis, unspecified site; F17.200 Nicotine dependence, unspecified, uncomplicated; F12.10 Cannabis abuse, uncomplicated; F14.10 Cocaine abuse, uncomplicated; Z79.899 Other long term (current) drug therapy; Z88.8 Allergy status to other drugs, medicaments and biological substances
CPT/HCPCS: 36415; 80048; 80307; 80320; 81001; 85025; G0480

== ENCOUNTER 2019-02-19 17:16 | Emergency (ER) | payer MEDICAID ==
[2019-02-19 17:30] VITALS: BP 133/86
[2019-02-19 17:50] LABS: Basophils % (Auto) 0.7 % (0.0-1.8); Eosinophils # (Auto) 0.3 K/mm3 (0.0-0.4); Eosinophils % (Auto) 4.6 % (0.0-4.3); Hematocrit 43.5 % (35.5-45.6); Hemoglobin 14.2 gm/dl (11.8-15.2); Lymphocytes # (Auto) 2.1 K/mm3 (1.2-5.4); Lymphocytes % (Auto) 36.2 % (13.4-35.0); Mean Corpuscular HGB Conc 33 % (32-34); Mean Corpuscular Volume 84 fl (84-94); Monocytes # (Auto) 0.6 K/mm3 (0.0-0.8); Monocytes % (Auto) 10.9 % (0.0-7.3); Platelet Count 306 K/mm3 (140-440); Red Blood Count 5.19 M/mm3 (3.65-5.03); Red Cell Distribution Width 14.6 % (13.2-15.2)
[2019-02-19 17:57] LABS: Bilirubin,Urine NEG (Negative); Blood,Urine NEG (Negative); Color,Urine Yellow (Yellow); Mucus,Urine 2+ /HPF
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
[2019-02-19 18:03] LABS: Amphetamine Screen,Urine PRESUMPTIVE NEGATIVE; Benzodiazepines Screen,Urine PRESUMPTIVE NEGATIVE; Cannabinoid Screen,Urine PRESUMPTIVE NEGATIVE; Cocaine Screen,Urine PRESUMPTIVE NEGATIVE; Methadone Screen,Urine PRESUMPTIVE NEGATIVE; Opiate Screen,Urine PRESUMPTIVE NEGATIVE
[2019-02-19 18:03] LABS: BUN/Creatinine Ratio 11; Blood Urea Nitrogen 13 mg/dL (9-20); Calcium 9.5 mg/dL (8.4-10.2); Hemolysis Index 14
== END 2019-02-19 18:05 | disposition home or self-care (01) ==
LOC: ED 17:16
DX: F41.9 Anxiety disorder, unspecified (principal); F20.9 Schizophrenia, unspecified; F32.9 Major depressive disorder, single episode, unspecified; F43.10 Post-traumatic stress disorder, unspecified; G43.909 Migraine, unspecified, not intractable, without status migrainosus; M19.90 Unspecified osteoarthritis, unspecified site; F17.200 Nicotine dependence, unspecified, uncomplicated; Z79.899 Other long term (current) drug therapy; Z88.8 Allergy status to other drugs, medicaments and biological substances
CPT/HCPCS: 36415; 80048; 80307; 80320; 81001; 85025; G0480

== ENCOUNTER 2019-03-03 12:02 | Emergency (ER) | payer MEDICAID ==
[2019-03-03 12:12] VITALS: BP 131/88
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
== END 2019-03-03 15:15 | disposition left against medical advice (07) ==
LOC: ED 12:02
DX: R51 Headache (principal); Z53.21 Procedure and treatment not carried out due to patient leaving prior to being seen by health care provider

== ENCOUNTER 2019-03-11 00:52 | Emergency (ER) | payer MEDICAID ==
[2019-03-11 01:42] LABS: Basophils # (Auto) 0.1 K/mm3 (0.0-0.1); Basophils % (Auto) 1.1 % (0.0-1.8); Eosinophils # (Auto) 0.1 K/mm3 (0.0-0.4); Hematocrit 43.1 % (35.5-45.6); Hemoglobin 14.4 gm/dl (11.8-15.2); Lymphocytes # (Auto) 2.8 K/mm3 (1.2-5.4); Lymphocytes % (Auto) 38.4 % (13.4-35.0); Mean Corpuscular HGB Conc 33 % (32-34); Mean Corpuscular Volume 84 fl (84-94); Monocytes # (Auto) 0.4 K/mm3 (0.0-0.8); Platelet Count 320 K/mm3 (140-440); Red Blood Count 5.14 M/mm3 (3.65-5.03); Red Cell Distribution Width 15.1 % (13.2-15.2)
[2019-03-11 02:02] LABS: BUN/Creatinine Ratio 20; Blood Urea Nitrogen 22 mg/dL (9-20); Calcium 9.5 mg/dL (8.4-10.2); Hemolysis Index 12
--- NOTE | 2019-03-11 02:24 | Emergency Department Report ---
ED Psych HPI - General Stated Complaint: MH/SUICIDAL/JUMPED INTO TRAFFIC Source: patient Mode of arrival: Ambulatory Limitations: No Limitations - History of Present Illness Initial Comments: 38-year-old male with a past medical history schizoaffective disorder, PTSD, bipolar disorder, and depression presents to the hospital complaining of suicidal ideation 2 days. Patient was recently kicked out of his program 2 days ago in his have been homeless since. He was kicked out for being argumentative. He has not had any his psychiatric medication for the past 2 days in is abusing crack with last use one hour prior to arrival. Patient's plan is to jump into traffic but states he received several calls from his daughter and decided to come to the hospital for help. He denies hearing voices. No physical complaints reported. - Related Data Home Medications Medication Instructions Recorded Confirmed Last Taken Benztropine [Cogentin] 1 mg PO BID 12/28/18 03/11/19 2 Days Ago ~03/09/19 FLUoxetine HCL [PROzac] 40 mg PO QDAY 12/28/18 03/11/19 2 Days Ago ~03/09/19 busPIRone [Buspar] 15 mg PO DAILY 12/28/18 03/11/19 2 Days Ago ~03/09/19 traZODone [Desyrel] 200 mg PO HS 12/28/18 03/11/19 2 Days Ago ~03/09/19 Allergies Allergy/AdvReac Type Severity Reaction Status Date / Time sertraline [From Zoloft] Allergy Hives Verified 03/03/19 12:03 ED Review of Systems ROS: Stated complaint: MH/SUICIDAL/JUMPED INTO TRAFFIC Other details as noted in HPI Comment: All other systems reviewed and negative ED Past Medical Hx - Past Medical History Previous Medical History?: Yes Hx Congestive Heart Failure: Yes Hx Pulmonary Embolism: No Hx GERD: No Hx Renal Disease: No Hx Sickle Cell Disease: No Hx Arthritis: Yes Hx Headaches / Migraines: No Hx Psychiatric Treatment: Yes (Anxiety, PTSD, Schizophrenia, Depression) - Surgical History Past Surgical History?: No - Social History Smoking Status: Never Smoker Substance Use Type: None - Medications Home Medications: Home Medications Medication Instructions Recorded Confirmed Last Taken Type Benztropine [Cogentin] 1 mg PO BID 12/28/18 03/11/19 2 Days Ago History ~03/09/19 FLUoxetine HCL [PROzac] 40 mg PO QDAY 12/28/18 03/11/19 2 Days Ago History ~03/09/19 busPIRone [Buspar] 15 mg PO DAILY 12/28/18 03/11/19 2 Days Ago History ~03/09/19 traZODone [Desyrel] 200 mg PO HS 12/28/18 03/11/19 2 Days Ago History ~03/09/19 ED Physical Exam - Other Other exam information: General: No acute distress Head: Atraumatic Eyes: normal appearance ENT: Moist mucous membranes Neck: Normal appearance, no midline tenderness Chest: Clear to auscultation bilaterally CV: Regular rate and rhythm Abdomen: Soft, normal bowel sounds, nontender, nondistended, no rebound or g uarding Back: Normal inspection Extremity: Normal inspection infection, full range of motion Neuro: Alert O x 3, no facial asymmetry, speech clear, no gross motor sensory deficit Psych: Appropriate behavior Skin: No rash ED Course Vital Signs 03/11/19 03/11/19 01:14 07:41 Temperature 98.5 F 98.3 F Pulse Rate 87 112 H Respiratory 18 20 Rate Blood Pressure 126/91 Blood Pressure 126/91 130/84 [Left] O2 Sat by Pulse 99 Oximetry ED Medical Decision Making - Lab Data Result diagrams: 03/11/19 01:11 03/11/19 01:11 - Differential Diagnosis si,hi, homeless, psychosis, drug abuse Critical care attestation.: If time is entered above; I have spent that time in minutes in the direct care of this critically ill patient, excluding procedure time. ED Disposition Clinical Impression: Schizophrenia, Suicidal ideation, Medical clearance for psychiatric admission Disposition: DC/TX-65 PSY HOSP/PSY UNIT Is pt being admited?: No Condition: Stable
[2019-03-11 06:57] LABS: Bilirubin,Urine NEG (Negative); Blood,Urine LG (Negative); Color,Urine Amber (Yellow); Mucus,Urine 3+ /HPF; Urobilinogen,Urine < 2.0 mg/dL (<2.0)
[2019-03-11 07:04] LABS: Amphetamine Screen,Urine PRESUMPTIVE NEGATIVE; Benzodiazepines Screen,Urine PRESUMPTIVE NEGATIVE; Cannabinoid Screen,Urine PRESUMPTIVE NEGATIVE; Methadone Screen,Urine PRESUMPTIVE NEGATIVE; Opiate Screen,Urine PRESUMPTIVE NEGATIVE
[2019-03-11 07:16] LABS: Cocaine Screen,Urine PRESUMPTIVE POSITIVE
[2019-03-11 07:43] VITALS: BP 130/84
== END 2019-03-11 19:26 ==
LOC: ED 00:52
DX: F20.9 Schizophrenia, unspecified (principal); R45.851 Suicidal ideations; I50.9 Heart failure, unspecified; M19.90 Unspecified osteoarthritis, unspecified site; F41.9 Anxiety disorder, unspecified
CPT/HCPCS: 36415; 80048; 80307; 80320; 81001; 85025; G0480

== ENCOUNTER 2019-05-20 17:31 | Emergency (ER) | payer MEDICAID ==
--- NOTE | 2019-05-20 17:40 | Event Note ---
ED Screening Note ED Screening Note: SI with plan to jump in front of traffic, multiple social stressors, brought to the ED by PD This initial assessment/diagnostic orders/clinical plan/treatment(s) is/are subject to change based on patients health status, clinical progression and re- assessment by fellow clinical providers in the ED. Further treatment and workup at subsequent clinical providers discretion. Patient/guardian urged not to elope from the ED as their condition may be serious if not clinically assessed and managed. Initial orders include: labs ED 1013 consult
[2019-05-20 18:17] LABS: Basophils % (Auto) 0.5 % (0.0-1.8); Eosinophils # (Auto) 0.2 K/mm3 (0.0-0.4); Eosinophils % (Auto) 2.8 % (0.0-4.3); Hematocrit 40.8 % (35.5-45.6); Hemoglobin 13.5 gm/dl (11.8-15.2); Lymphocytes # (Auto) 1.9 K/mm3 (1.2-5.4); Lymphocytes % (Auto) 27.6 % (13.4-35.0); Mean Corpuscular HGB Conc 33 % (32-34); Mean Corpuscular Volume 84 fl (84-94); Monocytes # (Auto) 1.1 K/mm3 (0.0-0.8); Monocytes % (Auto) 15.8 % (0.0-7.3); Platelet Count 336 K/mm3 (140-440); Red Blood Count 4.85 M/mm3 (3.65-5.03); Red Cell Distribution Width 13.9 % (13.2-15.2)
[2019-05-20 18:20] LABS: Bacteria,Urine 1+ /HPF (Negative); Bilirubin,Urine NEG (Negative); Blood,Urine NEG (Negative); Color,Urine Yellow (Yellow); Hyaline Casts,Urine 5 /LPF; Mucus,Urine 3+ /HPF
[2019-05-20 18:22] LABS: Amphetamine Screen,Urine PRESUMPTIVE NEGATIVE; Benzodiazepines Screen,Urine PRESUMPTIVE NEGATIVE; Cannabinoid Screen,Urine PRESUMPTIVE NEGATIVE; Methadone Screen,Urine PRESUMPTIVE NEGATIVE; Opiate Screen,Urine PRESUMPTIVE NEGATIVE
[2019-05-20 18:36] LABS: Cocaine Screen,Urine PRESUMPTIVE POSITIVE
[2019-05-20 18:41] LABS: Alanine Aminotransferase 26 units/L (7-56); Albumin 4.3 g/dL (3.9-5); BUN/Creatinine Ratio 13; Blood Urea Nitrogen 12 mg/dL (9-20); Calcium 9.3 mg/dL (8.4-10.2); Hemolysis Index 23
--- NOTE | 2019-05-20 19:02 | Emergency Department Report ---
HPI - General Chief Complaint: Psych Time Seen by Provider: 05/20/19 17:50 - HPI HPI: 38-year-old -Swazi male presents to the emergency department, brought in by PD, with a complaint of depression and suicidal ideations. The patient says that he has a plan to jump in front of oncoming traffic in order to kill himself. It sounds like the patient has multiple stressors but when asked if there is any particular thing that makes him want to harm himself he says "it is complicated and I do not want to talk about it." He has a past medical history that includes anxiety, PTSD, schizophrenia and depression. Patient says that he has not been on his psychiatric medications for the past 3 weeks. ED Past Medical Hx - Past Medical History Hx Congestive Heart Failure: Yes Hx Pulmonary Embolism: No Hx GERD: No Hx Renal Disease: No Hx Sickle Cell Disease: No Hx Arthritis: Yes Hx Headaches / Migraines: No Hx Psychiatric Treatment: Yes (Anxiety, PTSD, Schizophrenia, Depression) - Social History Smoking Status: Current Every Day Smoker Substance Use Type: Alcohol, Cocaine, Marijuana - Medications Home Medications: Home Medications Medication Instructions Recorded Confirmed Last Taken Type Benztropine [Cogentin] 1 mg PO BID 12/28/18 03/11/19 2 Days Ago History ~03/09/19 FLUoxetine HCL [PROzac] 40 mg PO QDAY 12/28/18 03/11/19 2 Days Ago History ~03/09/19 busPIRone [Buspar] 15 mg PO DAILY 12/28/18 03/11/19 2 Days Ago History ~03/09/19 traZODone [Desyrel] 200 mg PO HS 12/28/18 03/11/19 2 Days Ago History ~03/09/19 ED Review of Systems ROS: Stated complaint: SUICIDAL Other details as noted in HPI Comment: All other systems reviewed and negative Constitutional: denies: chills, fever Respiratory: denies: shortness of breath Cardiovascular: denies: chest pain Gastrointestinal: denies: abdominal pain, vomiting Musculoskeletal: denies: back pain, arthralgia Neurological: denies: headache, weakness Psychiatric: suicidal thoughts. denies: homicidal thoughts Physical Exam - Physical Exam Vital Signs: Vital Signs 05/20/19 17:36 Temperature 98.2 F Pulse Rate 88 Respiratory 20 Rate Blood Pressure 136/86 O2 Sat by Pulse 100 Oximetry Physical Exam: GENERAL: The patient is well-developed well-nourished. HENT: Normocephalic. Atraumatic. Patient has moist mucous membranes. EYES: Extraocular motions are intact. NECK: Supple. Trachea is midline. CHEST/LUNGS: Clear to auscultation. There is no respiratory distress noted. HEART/CARDIOVASCULAR: Regular. There is no tachycardia. ABDOMEN: Abdomen is soft, nontender. Patient has normal bowel sounds. There is no abdominal distention. SKIN: Skin is warm and dry. NEURO: The patient is awake, alert, and oriented. The patient is cooperative. The patient has no focal neurologic deficits. Normal speech. MUSCULOSKELETAL: There is no tenderness or deformity. There is no evidence of acute injury. PSYCH: Patient has a flat affect. ED Course Vital Signs 05/20/19 17:36 Temperature 98.2 F Pulse Rate 88 Respiratory 20 Rate Blood Pressure 136/86 O2 Sat by Pulse 100 Oximetry ED Medical Decision Making - Lab Data Result diagrams: 05/20/19 18:02 05/20/19 18:02 - Medical Decision Making This patient presents with the complaint of depression and suicidal ideations with a plan to walk out in front of traffic to kill himself. He has been noncompliant with his psychiatric medications for the past 3 weeks. He has been made a 1013. Labs are mostly unremarkable except for urine drug screen positive for cocaine but the patient does not appear acutely intoxicated. Vital signs stable throughout his ED course thus far. Patient appears medically cleared for psychiatric placement. - Differential Diagnosis Depression, bipolar disorder, schizophrenia, substance abuse Critical Care Time: No Critical care attestation.: If time is entered above; I have spent that time in minutes in the direct care of this critically ill patient, excluding procedure time. ED Disposition Clinical Impression: Suicidal ideation Depression Qualifiers: Depression Type: unspecified Qualified Code(s): F32.9 - Major depressive disorder, single episode, unspecified Disposition: DC/TX-65 PSY HOSP/PSY UNIT Is pt being admited?: No Condition: Stable Time of Disposition: 23:11
[2019-05-21 08:06] VITALS: BP 124/64
== END 2019-05-21 11:00 ==
LOC: ED 17:31
DX: F32.9 Major depressive disorder, single episode, unspecified (principal); R45.851 Suicidal ideations; M19.90 Unspecified osteoarthritis, unspecified site; F43.10 Post-traumatic stress disorder, unspecified; F20.9 Schizophrenia, unspecified; F17.200 Nicotine dependence, unspecified, uncomplicated; F14.10 Cocaine abuse, uncomplicated; F12.10 Cannabis abuse, uncomplicated
CPT/HCPCS: 36415; 80053; 80307; 80320; 81001; 85025; G0480

== ENCOUNTER 2019-06-11 18:50 | Emergency (ER) | payer MEDICAID ==
--- NOTE | 2019-06-11 20:46 | Emergency Department Report ---
ED Psych HPI - General Chief Complaint: Psych Stated Complaint: WANT TO KILL MOTHER AND BROTHER Time Seen by Provider: 06/11/19 20:09 Source: patient Mode of arrival: Ambulatory - History of Present Illness Initial Comments: Patient is a 38-year-old male past medical history of schizoaffective disorder who presents with homicidal ideation patient states that he was angry at his mother and brother and he planned to kill them. Patient currently does not have a plan as to how he would kill them patient is also suicidal and he has been hearing voices. - Related Data Home Medications Medication Instructions Recorded Confirmed Last Taken Benztropine [Cogentin] 1 mg PO BID 12/28/18 05/21/19 2 Days Ago ~03/09/19 FLUoxetine HCL [PROzac] 40 mg PO QDAY 12/28/18 05/21/19 2 Days Ago ~03/09/19 busPIRone [Buspar] 15 mg PO DAILY 12/28/18 05/21/19 2 Days Ago ~03/09/19 traZODone [Desyrel] 200 mg PO HS 12/28/18 05/21/19 2 Days Ago ~03/09/19 Allergies Allergy/AdvReac Type Severity Reaction Status Date / Time sertraline [From Zoloft] Allergy Hives Verified 05/20/19 17:32 ED Review of Systems ROS: Stated complaint: WANT TO KILL MOTHER AND BROTHER Other details as noted in HPI Constitutional: denies: chills, fever Eyes: denies: eye pain, eye discharge, vision change ENT: denies: ear pain, throat pain Respiratory: denies: cough, shortness of breath, wheezing Cardiovascular: denies: chest pain, palpitations Endocrine: no symptoms reported Gastrointestinal: denies: abdominal pain, nausea, diarrhea Genitourinary: denies: urgency, dysuria Musculoskeletal: denies: back pain, joint swelling, arthralgia Skin: denies: rash, lesions Neurological: denies: headache, weakness, paresthesias Psychiatric: anxiety, depression, auditory hallucinations, homicidal thoughts, suicidal thoughts Hematological/Lymphatic: denies: easy bleeding, easy bruising ED Past Medical Hx - Past Medical History Hx Congestive Heart Failure: Yes Hx Pulmonary Embolism: No Hx GERD: No Hx Renal Disease: No Hx Sickle Cell Disease: No Hx Arthritis: Yes Hx Headaches / Migraines: No Hx Psychiatric Treatment: Yes (Anxiety, PTSD, Schizophrenia, Depression) - Surgical History Past Surgical History?: No - Social History Smoking Status: Current Every Day Smoker Substance Use Type: Alcohol, Cocaine, Marijuana - Medications Home Medications: Home Medications Medication Instructions Recorded Confirmed Last Taken Type Benztropine [Cogentin] 1 mg PO BID 12/28/18 05/21/19 2 Days Ago History ~03/09/19 FLUoxetine HCL [PROzac] 40 mg PO QDAY 12/28/18 05/21/19 2 Days Ago History ~03/09/19 busPIRone [Buspar] 15 mg PO DAILY 12/28/18 05/21/19 2 Days Ago History ~03/09/19 traZODone [Desyrel] 200 mg PO HS 12/28/18 05/21/19 2 Days Ago History ~03/09/19 ED Physical Exam - General Limitations: No Limitations General appearance: alert, in no apparent distress - Head Head exam: Present: atraumatic, normocephalic - Eye Eye exam: Present: normal appearance - ENT ENT exam: Present: mucous membranes moist - Neck Neck exam: Present: normal inspection - Respiratory Respiratory exam: Present: normal lung sounds bilaterally. Absent: respiratory distress - Cardiovascular Cardiovascular Exam: Present: regular rate, normal rhythm. Absent: systolic murmur, diastolic murmur, rubs, gallop - GI/Abdominal GI/Abdominal exam: Present: soft, normal bowel sounds - Rectal Rectal exam: Present: deferred - Extremities Exam Extremities exam: Present: normal inspection - Back Exam Back exam: Present: normal inspection - Neurological Exam Neurological exam: Present: alert, oriented X3 - Psychiatric Psychiatric exam: Present: normal affect, normal mood - Skin Skin exam: Present: warm, dry, intact, normal color. Absent: rash ED Course Vital Signs 06/11/19 20:56 Temperature 98.4 F Pulse Rate 98 H Respiratory 18 Rate Blood Pressure 138/83 [Left] O2 Sat by Pulse 97 Oximetry ED Medical Decision Making - Lab Data Result diagrams: 06/11/19 20:36 06/11/19 20:36 - Medical Decision Making Cdx:Homicidal Ideation Ddx: Schizoaffective disorder, Manic disorder, substance induced mood disorder I will sign 1013 I will get blood work and I will consult psychiatry. Critical care attestation.: If time is entered above; I have spent that time in minutes in the direct care of this critically ill patient, excluding procedure time. ED Disposition Clinical Impression: Suicidal ideation Schizophrenia Qualifiers: Schizophrenia type: unspecified Qualified Code(s): F20.9 - Schizophrenia, unspecified Disposition: DC/TX-65 PSY HOSP/PSY UNIT Is pt being admited?: No Does the pt Need Aspirin: No Condition: Stable
[2019-06-11 21:02] LABS: Basophils # (Auto) 0.1 K/mm3 (0.0-0.1); Basophils % (Auto) 0.6 % (0.0-1.8); Eosinophils # (Auto) 0.2 K/mm3 (0.0-0.4); Eosinophils % (Auto) 2.6 % (0.0-4.3); Hematocrit 38.5 % (35.5-45.6); Hemoglobin 12.6 gm/dl (11.8-15.2); Lymphocytes # (Auto) 2.8 K/mm3 (1.2-5.4); Mean Corpuscular HGB Conc 33 % (32-34); Mean Corpuscular Volume 83 fl (84-94); Monocytes # (Auto) 0.8 K/mm3 (0.0-0.8); Monocytes % (Auto) 8.8 % (0.0-7.3); Platelet Count 310 K/mm3 (140-440); Red Blood Count 4.66 M/mm3 (3.65-5.03); Red Cell Distribution Width 13.7 % (13.2-15.2)
[2019-06-11 21:18] LABS: Bilirubin,Urine NEG (Negative); Blood,Urine NEG (Negative); Color,Urine Yellow (Yellow); Mucus,Urine 3+ /HPF
[2019-06-11 21:21] LABS: BUN/Creatinine Ratio 19; Blood Urea Nitrogen 21 mg/dL (9-20); Calcium 8.8 mg/dL (8.4-10.2); Hemolysis Index 3
[2019-06-11 21:22] LABS: Amphetamine Screen,Urine PRESUMPTIVE NEGATIVE; Benzodiazepines Screen,Urine PRESUMPTIVE NEGATIVE; Cannabinoid Screen,Urine PRESUMPTIVE NEGATIVE; Methadone Screen,Urine PRESUMPTIVE NEGATIVE; Opiate Screen,Urine PRESUMPTIVE NEGATIVE
[2019-06-11 21:49] LABS: Cocaine Screen,Urine PRESUMPTIVE POSITIVE
[2019-06-12 16:45] VITALS: BP 127/75
== END 2019-06-12 16:44 ==
LOC: ED 18:50
DX: R45.851 Suicidal ideations (principal); F20.9 Schizophrenia, unspecified; I50.9 Heart failure, unspecified; F43.10 Post-traumatic stress disorder, unspecified; F17.200 Nicotine dependence, unspecified, uncomplicated
CPT/HCPCS: 36415; 80048; 80307; 80320; 81001; 85025; 99285; G0480

== ENCOUNTER 2020-08-27 04:24 | Emergency (ER) | payer MEDICAID ==
[2020-08-27] MEDS ORDERED: ZIPRASIDONE MESYLATE 20 MG VIAL IM ONE ×2 (04:55→05:01)
[2020-08-27 05:38] LABS: Basophils % (Auto) 0.3 % (0.0-1.8); Eosinophils # (Auto) 0.2 K/mm3 (0.0-0.4); Eosinophils % (Auto) 2.6 % (0.0-4.3); Hematocrit 43.8 % (35.5-45.6); Hemoglobin 14.4 gm/dl (11.8-15.2); Lymphocytes # (Auto) 2.5 K/mm3 (1.2-5.4); Lymphocytes % (Auto) 32.7 % (13.4-35.0); Mean Corpuscular HGB Conc 33 % (32-34); Mean Corpuscular Volume 86 fl (84-94); Monocytes # (Auto) 1.1 K/mm3 (0.0-0.8); Monocytes % (Auto) 14.7 % (0.0-7.3); Platelet Count 303 K/mm3 (140-440); Red Blood Count 5.11 M/mm3 (3.65-5.03); Red Cell Distribution Width 14.2 % (13.2-15.2)
--- NOTE | 2020-08-27 05:48 | Emergency Department Report ---
ED Psych HPI - General Chief Complaint: Psych Stated Complaint: HOMICIDAL/SUICIDAL Time Seen by Provider: 08/27/20 05:00 Source: patient Mode of arrival: Ambulatory - History of Present Illness Initial Comments: 39-year-old male, history of schizoaffective disorder, presents to ED for mental health evaluation. Patient states he is hearing voices telling him to kill everyone. Patient states he is also having some suicidal thoughts as well. Patient reports use of crack cocaine. Patient states he recently received his Invega shot. Patient apparently left from the waiting room, so PD was called to find patient. Patient presents back to the ED escorted by multiple police officers. He was apparently somewhat combative with them. MD Complaint: other -: unknown Associated Psychiatric Symptoms: suicidal ideation, homicidal ideation, auditory hallucinations Quality: constant Improves With: other (Drug use) Worsens With: none Context: recent drug abuse Associated Symptoms: denies other symptoms If Self Harm: admits thoughts of - Related Data Home Medications Medication Instructions Recorded Confirmed Last Taken Benztropine [Cogentin] 1 mg PO BID 12/28/18 06/12/19 2 Days Ago ~03/09/19 FLUoxetine HCL [PROzac] 40 mg PO QDAY 12/28/18 06/12/19 2 Days Ago ~03/09/19 busPIRone [Buspar] 15 mg PO DAILY 12/28/18 06/12/19 2 Days Ago ~03/09/19 traZODone [Desyrel] 200 mg PO HS 12/28/18 06/12/19 2 Days Ago ~03/09/19 Previous Rx's Medication Instructions Recorded Last Taken Type Divalproex Dr [Tramaine NGO] 125 mg PO BID #60 tablet 08/28/20 Unknown Rx FLUoxetine [PROzac] 10 mg PO QDAY #30 tablet 08/28/20 Unknown Rx traZODone [Desyrel] 50 mg PO QHS #30 tab 08/28/20 Unknown Rx Allergies Allergy/AdvReac Type Severity Reaction Status Date / Time sertraline [From Zoloft] Allergy Hives Verified 08/28/20 08:22 ED Review of Systems ROS: Stated complaint: HOMICIDAL/SUICIDAL Other details as noted in HPI Comment: All other systems reviewed and negative Psychiatric: auditory hallucinations, homicidal thoughts, suicidal thoughts ED Past Medical Hx - Past Medical History Hx Congestive Heart Failure: Yes Hx Pulmonary Embolism: No Hx GERD: No Hx Renal Disease: No Hx Sickle Cell Disease: No Hx Arthritis: Yes Hx Headaches / Migraines: No Hx Psychiatric Treatment: Yes (Anxiety, PTSD, Schizophrenia, Depression) - Social History Smoking Status: Unknown if ever smoked - Medications Home Medications: Home Medications Medication Instructions Recorded Confirmed Last Taken Type Benztropine [Cogentin] 1 mg PO BID 12/28/18 06/12/19 2 Days Ago History ~03/09/19 FLUoxetine HCL [PROzac] 40 mg PO QDAY 12/28/18 06/12/19 2 Days Ago History ~03/09/19 busPIRone [Buspar] 15 mg PO DAILY 12/28/18 06/12/19 2 Days Ago History ~03/09/19 traZODone [Desyrel] 200 mg PO HS 12/28/18 06/12/19 2 Days Ago History ~03/09/[address] [DepaKOTE DR] 125 mg PO BID #60 tablet 08/28/20 Unknown Rx FLUoxetine [PROzac] 10 mg PO QDAY #30 tablet 08/28/20 Unknown Rx traZODone [Desyrel] 50 mg PO QHS #30 tab 08/28/20 Unknown Rx ED Physical Exam - General Limitations: No Limitations General appearance: alert, in no apparent distress - Head Head exam: Present: atraumatic, normocephalic - Eye Eye exam: Present: normal appearance, EOMI - ENT ENT exam: Present: mucous membranes moist - Neck Neck exam: Present: normal inspection - Respiratory Respiratory exam: Present: normal lung sounds bilaterally. Absent: respiratory distress - Cardiovascular Cardiovascular Exam: Present: normal rhythm, tachycardia - GI/Abdominal GI/Abdominal exam: Absent: distended - Extremities Exam Extremities exam: Present: normal inspection - Neurological Exam Neurological exam: Present: alert, oriented X3 - Psychiatric Psychiatric exam: Present: other (Tearful) - Skin Skin exam: Present: warm, dry, intact, normal color ED Course Vital Signs 08/27/20 08/27/20 08/27/20 05:42 05:46 08:00 Temperature 97.9 F Pulse Rate 113 H Respiratory 20 20 18 Rate Blood Pressure 117/76 [Left] O2 Sat by Pulse 99 Oximetry 08/27/20 08/28/20 21:23 08:22 Temperature 97.6 F 98.4 F Pulse Rate 95 H 90 Respiratory 18 20 Rate Blood Pressure 134/89 119/88 [Left] O2 Sat by Pulse 98 99 Oximetry ED Medical Decision Making - Lab Data Result diagrams: 08/27/20 05:03 08/28/20 11:14 - Medical Decision Making 39-year-old male presents to ED with auditory hallucinations telling him to kill everyone. Patient also reports some suicidal ideations. Patient is upset with himself because he continues to use cocaine. Patient placed on 1013. He is medically clear for mental health evaluation. Will dispo per psych. Critical care attestation.: If time is entered above; I have spent that time in minutes in the direct care of this critically ill patient, excluding procedure time. ED Disposition Clinical Impression: Cocaine abuse, Psychosis, Schizoaffective disorder, Renal insufficiency UTI (urinary tract infection) Qualifiers: Urinary tract infection type: site unspecified Hematuria presence: without hematuria Qualified Code(s): N39.0 - Urinary tract infection, site not specified Disposition: DC-01 TO HOME OR SELFCARE Is pt being admited?: No Condition: Stable Additional Instructions: Follow-up with the [facility] clinic on your probable UTI and slow urine function. Increase your fluid intake next several days. Professional and Agency Contacts To help [facility] Crises(13/10) [place] Crisis Line: Suicide Prevention Line: Crisis Text Line: Text START to 919168 Emergency: 911 Outpatient COMMUNITY Behavioral Health Resources: [place]: [facility] [address] [place] [address] [address] [place]: [facility] - [address] [place] [address] Thursday thru Thursday - 8am - 5pm [facility] Address: [address], [place] [address] [facility] Address: [address] [place] [address] Thursday thru Thursday- 7am-2pm [facility] Address: [address] [place] [address] Thursday thru Thursday: 8:30AM-5PM OUTPATIENT MENTAL HEALTH RESOURCES [facility], [address] [place] [address] [facility] Fabiola Antonio MD: [address] [facility] [address] [place], [place] [id number] [facility]: [address] [place], [place] [id number] [employer] [place], [place] [id number] [phone] [facility]: [address] [facility] [address] [place], [place] [id number] [facility]: [address] [facility]. [address] [place] [id number] [facility]: [address] [place], [place] Melo Alves MD: [address] [facility] [id number] [facility]: [address] [place], [place] [id number] [phone] [place] CRISIS AND ACCESS LINE: * In case of an emergency, please contact the following numbers: [place] Crisis and Access Line: Number: Crisis Text Line: (Text START) Number: 324461 Suicide Prevention Line: Number: Emergency Number: 911 SUBSTANCE ABUSE PROGRAMS: [facility]: Location: [place], [place] [facility] Address: [address] [place] [address] [facility]: Address: [address] [place] [address] [facility]: Address: [address] [place] [address] [facility]: Address: [address] [place] [address] [facility] Address: [address] [place] [address]. Please contact above numbers to attempt placement into free based program. Medicaid Programs: [facility]: Address: [address] [place] [address] [facility]: Address: [address] [place] [address] Prescriptions: traZODone [Desyrel] 50 mg PO QHS #[address] [DepaKOTE DR] 125 mg PO BID #60 tablet FLUoxetine [PROzac] 10 mg PO QDAY #30 tablet Referrals: [facility] [Provider Group] - 3-5 Days PRIMARY CARE, [Primary Care Provider] - 3-5 Days
[2020-08-27 05:51] LABS: BUN/Creatinine Ratio 16; Blood Urea Nitrogen 24 mg/dL (9-20); Calcium 9.7 mg/dL (8.4-10.2); Hemolysis Index 4
[2020-08-27 06:13] LABS: Amphetamine Screen,Urine PRESUMPTIVE NEGATIVE; Benzodiazepines Screen,Urine PRESUMPTIVE NEGATIVE; Cannabinoid Screen,Urine PRESUMPTIVE NEGATIVE; Cocaine Screen,Urine PRESUMPTIVE POSITIVE; Methadone Screen,Urine PRESUMPTIVE NEGATIVE; Opiate Screen,Urine PRESUMPTIVE NEGATIVE
[2020-08-27 06:14] LABS: Bacteria,Urine 1+ /HPF (Negative); Bilirubin,Urine SM (Negative); Blood,Urine MOD (Negative); Color,Urine Amber (Yellow); Mucus,Urine 3+ /HPF
[2020-08-27 06:19] LABS: Ictotest,Urine Negative (Negative)
--- NOTE | 2020-08-27 11:08 | Consultation ---
History of Present Illness - Reason for Consult Consult date: 08/27/20 Reason for consult: SI/HI - History of Present Psychiatric Illness Per ED Note: 39-year-old male, history of schizoaffective disorder, presents to ED for mental health evaluation. Patient states he is hearing voices telling him to kill everyone. Patient states he is also having some suicidal thoughts as well. Patient reports use of crack cocaine. Patient states he recently received his Invega shot. Patient apparently left from the waiting room, so PD was called to find patient. Patient presents back to the ED escorted by multiple police officers. He was apparently somewhat combative with them. During my evaluation of 39y/o Loly Apple, he is lying down eating breakf ast. He is calm and cooperative. The patient states, "I want to and kill some people." He says "I keep relapsing on drugs." The patient verbalizes use of "crack." He denies hallucinations of any kind. He says "I haven't been here in a year, I was okay until now." The patient says he had his Invega injection 234mg about 4 days ago. He says his other medications he's been off for about a month. He says he has a history of schizoaffective disorder PAST PSYCHIATRIC HISTORY Diagnoses: schizoaffective Suicide attempts or Self-harm behavior: Yes Prior psychiatric hospitalizations: Yes Substance Abuse history: Crack cocaine Previous psychiatric medications tried: Invega, cogentin, trazodone Outpatient treatment: PAST MEDICAL HISTORY: None report Family Psychiatric History: None reported or documented SOCIAL HISTORY Marital Status: Single Living Arrangements: with girlfriend Employment Status: Unemployed Access to guns/weapons: None reported Education: History of Abuse: Legal History: REVIEW OF SYSTEMS Constitutional: Negative for weight loss ENT: Negative for stridor Respiratory: Negative for cough or hemoptysis All other systems reviewed and are negative MENTAL STATUS EXAMINATION General Appearance and Behavior: Age appropriate, good hygiene, not wearing appropriate clothes, fair eye contact, cooperative, calm Cooperation: cooperative, engaging Psychomotor Behavior: Psychomotor normal Mood: Depressed Affect and affective range: Congruent with stated mood Thought Process: Goal directed Speech: Normal tone and pace Thought Content Suicidal Ideation: Yes Homicidal Ideation: Yes Hallucinations: Denies Delusions: None elicited Impulse Control: Impaired Insight and Judgment: Poor insight and judgment Memory: Normal Attention: Undivided attention impaired Orientation: A/o x 3 Assessment and Plan (1) Major Depressive Disorder (2) Cocaine Dependence with Substance Induced Mood Treatment Plan [address] 125mg po BID Start Prozac 10mg po daily Start Trazodone 50mg po qhs Sitter: defer to primary Medical: Per primary Disposition: Recommend acute psychiatric inpatient treatment. Will follow. thank you Case staffed with Dr. Denney Medications and Allergies Allergies Allergy/AdvReac Type Severity Reaction Status Date / Time sertraline [From Zoloft] Allergy Hives Verified 05/20/19 17:32 Home Medications Medication Instructions Recorded Confirmed Last Taken Type Benztropine [Cogentin] 1 mg PO BID 12/28/18 06/12/19 2 Days Ago History ~03/09/19 FLUoxetine HCL [PROzac] 40 mg PO QDAY 12/28/18 06/12/19 2 Days Ago History ~03/09/19 busPIRone [Buspar] 15 mg PO DAILY 12/28/18 06/12/19 2 Days Ago History ~03/09/19 traZODone [Desyrel] 200 mg PO HS 12/28/18 06/12/19 2 Days Ago History ~03/09/19 Mental Status Exam - Vital signs Last Vital Signs Temp 97.9 F 08/27/20 05:42 Pulse 113 H 08/27/20 05:42 Resp 18 08/27/20 08:00 BP 117/76 08/27/20 05:42 Pulse Ox 99 08/27/20 05:42 Results Result Diagrams: 08/27/20 05:03 08/27/20 05:03 Abnormal lab results 08/27/20 08/27/20 08/27/20 Range/Units 05:03 05:03 05:03 RBC (3.65-5.03) M/mm3 [place] % (Auto) (0.0-7.3) % [place] # (Auto) (0.0-0.8) K/mm3 BUN 24 H (9-20) mg/dL Creatinine 1.5 H (0.8-1.3) mg/dL Glucose 117 H (75-100) mg/dL Ur Specific [place] (1.003-1.030) Urine WBC (Auto) (0.0-6.0) /HPF Salicylates < 0.3 L (2.8-20.0) mg/dL Acetaminophen 5.0 L (10.0-30.0) ug/mL 08/27/20 08/27/20 Range/Units 05:03 05:46 RBC 5.11 H (3.65-5.03) M/mm3 [place] % (Auto) 14.7 H (0.0-7.3) % [place] # (Auto) 1.1 H (0.0-0.8) K/mm3 BUN (9-20) mg/dL Creatinine (0.8-1.3) mg/dL Glucose (75-100) mg/dL Ur Specific [place] 1.033 H (1.003-1.030) Urine WBC (Auto) 7.0 H (0.0-6.0) /HPF Salicylates (2.8-20.0) mg/dL Acetaminophen (10.0-30.0) ug/mL All other labs normal.
[2020-08-27] MEDS: FLUoxetine 10 MG TAB PO SCH (18:01)
[2020-08-27] MEDS: DIVALPROEX DR 125 MG TAB PO SCH ×2 (18:01→22:15)
[2020-08-27] MEDS ORDERED: traZODone 50 MG TAB PO SCH (22:00)
[2020-08-28 08:22] VITALS: BP 119/88
[2020-08-28] MEDS: DIVALPROEX DR 125 MG TAB PO SCH (09:42)
[2020-08-28] MEDS: FLUoxetine 10 MG TAB PO SCH (09:42)
--- NOTE | 2020-08-28 10:54 | Progress Note ---
Subjective - Reason for Consult Consult date: 08/28/20 Reason for consult: suicidal, drug use - Chief Complaint Chief complaint: Per nurse staff: They state the patient has been calm, cooperative and denies SI/HI or hallucinations of any kind. The patient was seen today, he says he feels better today. The patient says he had a relapse on crack and was in a program. He denies SI/HI, but states when he came in he felt suicidal about his situation. He says "I'm enrolled in school and lives with his girlfriend." He says he sees "[facility]." The patient denies hallucinations of any kind. REVIEW OF SYSTEMS Constitutional: Negative for weight loss ENT: Negative for stridor Respiratory: Negative for cough or hemoptysis All other systems reviewed and are negative MENTAL STATUS EXAMINATION General Appearance and Behavior: Age appropriate, good hygiene, not wearing appropriate clothes, good eye contact, cooperative, calm Cooperation: cooperative, engaging Psychomotor Behavior: Psychomotor normal Mood: better Affect and affective range: Congruent with stated mood Thought Process: Goal directed Speech: Normal tone and pace Thought Content Suicidal Ideation: Denies Homicidal Ideation: Denies Hallucinations: Denies Delusions: None elicited Impulse Control: Limited Insight and Judgment: Limited insight and judgment Memory: Normal Attention: Undivided attention impaired Orientation: A/o x 3 Assessment and Plan (1) Major Depressive Disorder (2) Cocaine Dependence with Substance Induced Mood Treatment Plan d/c [address] 125mg po BID Prozac 10mg po daily Trazodone 50mg po qhs Sitter: defer to primary Medical: Per primary Disposition: Do not recommend acute psychiatric inpatient treatment. The patient understands that if SI/HI are to return that he should seek immediate assistance including but not limited to 911/ER and/or crisis hotline. He is to abstain from all illicit drug use The grade tamper is to further discuss the safety plan, give resources for CBT, drug rehab and outpatient psychiatry for med management The patient is to follow up with psych in 7 to 14 days upon discharge. Will sign off. thank you for this consult Case staffed with Dr. Denney Mental Status Exam - Vital signs Last Vital Signs Temp 98.4 F 08/28/20 08:22 Pulse 90 08/28/20 08:22 Resp 20 08/28/20 08:22 BP 119/88 08/28/20 08:22 Pulse Ox 99 08/28/20 08:22
[2020-08-28] MEDS ORDERED: NITROFURANTOIN MONOHYD/M-CRYST 100 MG CAP PO ONE (11:19)
[2020-08-28 12:03] LABS: Creatine Kinase MB 6.7 ng/mL (0.0-4.0)
[2020-08-28 12:04] LABS: BUN/Creatinine Ratio 19; Blood Urea Nitrogen 19 mg/dL (9-20); Calcium 9.1 mg/dL (8.4-10.2); Hemolysis Index 1
== END 2020-08-28 14:47 | disposition home or self-care (01) ==
LOC: ED 04:24 → EEVIPCON 04:24 → ED 08-28 14:47
DX: N39.0 Urinary tract infection, site not specified (principal); Z20.822 Contact with and (suspected) exposure to COVID-19; F29 Unspecified psychosis not due to a substance or known physiological condition; N28.9 Disorder of kidney and ureter, unspecified; F14.10 Cocaine abuse, uncomplicated; I50.9 Heart failure, unspecified; M19.91 Primary osteoarthritis, unspecified site; F20.9 Schizophrenia, unspecified; Z79.899 Other long term (current) drug therapy; Z88.8 Allergy status to other drugs, medicaments and biological substances
CPT/HCPCS: 36415; 80048; 80307; 80320; 81001; 82550; 82553; 85025; 96372; G0480; J3486; U0003

== ENCOUNTER 2020-08-28 17:58 | Emergency (ER) | payer MEDICAID ==
--- NOTE | 2020-08-28 19:23 | Event Note ---
ED Screening Note Date of service: 08/28/20 Time: 19:17 ED Screening Note: Patient presents to the ER today with complaint of suicidal ideation. Patient states that he wanted to jump in traffic today. He states that he just wants to because he feels worthless. He feels like he is just wasting his breath. Past medical history significant for PTSD, anxiety, depression and schizoaffective disorder This initial assessment/diagnostic orders/clinical plan/treatment(s) is/are subject to change based on patients health status, clinical progression and re- assessment by fellow clinical providers in the ED. Further treatment and workup at subsequent clinical providers discretion. Patient/guardian urged not to elope from the ED as their condition may be serious if not clinically assessed and managed. Initial orders include: Psych order set
[2020-08-28 19:35] LABS: Basophils % (Auto) 0.3 % (0.0-1.8); Eosinophils # (Auto) 0.2 K/mm3 (0.0-0.4); Eosinophils % (Auto) 2.6 % (0.0-4.3); Hematocrit 41.7 % (35.5-45.6); Hemoglobin 13.9 gm/dl (11.8-15.2); Lymphocytes % (Auto) 31.7 % (13.4-35.0); Mean Corpuscular HGB Conc 33 % (32-34); Mean Corpuscular Volume 85 fl (84-94); Monocytes # (Auto) 0.8 K/mm3 (0.0-0.8); Monocytes % (Auto) 13.4 % (0.0-7.3); Platelet Count 203 K/mm3 (140-440); Red Blood Count 4.91 M/mm3 (3.65-5.03); Red Cell Distribution Width 13.8 % (13.2-15.2)
[2020-08-28 19:58] LABS: Alanine Aminotransferase 42 units/L (7-56); Albumin 4.5 g/dL (3.9-5); BUN/Creatinine Ratio 18; Blood Urea Nitrogen 18 mg/dL (9-20); Calcium 9.6 mg/dL (8.4-10.2); Hemolysis Index 5
[2020-08-28 20:58] LABS: Bilirubin,Urine NEG (Negative); Blood,Urine NEG (Negative); Color,Urine Yellow (Yellow); Mucus,Urine 3+ /HPF; Sperm,Urine 3+ /HPF (NP)
[2020-08-28 21:01] LABS: Amphetamine Screen,Urine Negative; Benzodiazepines Screen,Urine Negative; Cannabinoid Screen,Urine Negative; Methadone Screen,Urine Negative; Opiate Screen,Urine Negative
[2020-08-28 21:15] LABS: Cocaine Screen,Urine Positive
--- NOTE | 2020-08-28 21:42 | Emergency Department Report ---
ED Psych HPI - General Chief Complaint: Psych Stated Complaint: SI Time Seen by Provider: 08/28/20 21:39 Source: patient, old records reviewed Mode of arrival: Ambulatory Limitations: No Limitations - History of Present Illness Initial Comments: CC: Suicidal ideation HPI: This is a 39-year-old male with history of PTSD depression, cocaine abuse, schizoaffective disorder who presents with suicidal ideation. He informed provider triage that he plans to jump in front of traffic. He denies any physical complaints. He is currently comfortable. -: Gradual, days(s) (Several days) Associated Psychiatric Symptoms: depression, suicidal ideation History of same: Yes Quality: constant Improves With: none Worsens With: none Context: recent drug abuse, not taking psychiatric Associated Symptoms: denies other symptoms Treatments Prior to Arrival: none If Self Harm: other (Evaluated this week for similar issues) - Related Data Home Medications Medication Instructions Recorded Confirmed Last Taken Benztropine [Cogentin] 1 mg PO BID 12/28/18 06/12/19 2 Days Ago ~03/09/19 FLUoxetine HCL [PROzac] 40 mg PO QDAY 12/28/18 06/12/19 2 Days Ago ~03/09/19 busPIRone [Buspar] 15 mg PO DAILY 12/28/18 06/12/19 2 Days Ago ~03/09/19 traZODone [Desyrel] 200 mg PO HS 12/28/18 06/12/19 2 Days Ago ~03/09/19 Previous Rx's Medication Instructions Recorded Last Taken Type Divalproex Dr [DepaKOTE DR] 125 mg PO BID #60 tablet 08/28/20 Unknown Rx FLUoxetine [PROzac] 10 mg PO QDAY #30 tablet 08/28/20 Unknown Rx traZODone [Desyrel] 50 mg PO QHS #30 tab 08/28/20 Unknown Rx Allergies Allergy/AdvReac Type Severity Reaction Status Date / Time sertraline [From Zoloft] Allergy Hives Verified 08/28/20 08:22 ED Review of Systems ROS: Stated complaint: SI Other details as noted in HPI Comment: All other systems reviewed and negative Constitutional: denies: fever, malaise Respiratory: denies: orthopnea, shortness of breath Cardiovascular: denies: chest pain Gastrointestinal: denies: abdominal pain Psychiatric: depression, suicidal thoughts ED Past Medical Hx - Past Medical History Previous Medical History?: Yes Hx Congestive Heart Failure: Yes Hx Pulmonary Embolism: No Hx GERD: No Hx Renal Disease: No Hx Sickle Cell Disease: No Hx Arthritis: Yes Hx Headaches / Migraines: No Hx Psychiatric Treatment: Yes (Anxiety, PTSD, Schizophrenia, Depression) - Surgical History Past Surgical History?: No - Social History Smoking Status: Current Every Day Smoker Substance Use Type: Cocaine, Marijuana - Medications Home Medications: Home Medications Medication Instructions Recorded Confirmed Last Taken Type Benztropine [Cogentin] 1 mg PO BID 12/28/18 06/12/19 2 Days Ago History ~03/09/19 FLUoxetine HCL [PROzac] 40 mg PO QDAY 12/28/18 06/12/19 2 Days Ago History ~03/09/19 busPIRone [Buspar] 15 mg PO DAILY 12/28/18 06/12/19 2 Days Ago History ~03/09/19 traZODone [Desyrel] 200 mg PO HS 12/28/18 06/12/19 2 Days Ago History ~03/09/[address] [DepaKOTE DR] 125 mg PO BID #60 tablet 08/28/20 Unknown Rx FLUoxetine [PROzac] 10 mg PO QDAY #30 tablet 08/28/20 Unknown Rx traZODone [Desyrel] 50 mg PO QHS #30 tab 08/28/20 Unknown Rx ED Physical Exam - General Limitations: No Limitations General appearance: alert, in no apparent distress - Head Head exam: Present: atraumatic, normocephalic - Eye Eye exam: Present: normal appearance - ENT ENT exam: Present: mucous membranes moist - Neck Neck exam: Present: normal inspection, full ROM - Respiratory Respiratory exam: Present: normal lung sounds bilaterally. Absent: respiratory distress, wheezes, rales, rhonchi - Cardiovascular Cardiovascular Exam: Present: regular rate, normal rhythm, normal heart sounds. Absent: systolic murmur, diastolic murmur, rubs, gallop - GI/Abdominal GI/Abdominal exam: Present: soft, normal bowel sounds. Absent: distended, tenderness, guarding, rebound - Rectal Rectal exam: Present: deferred - Extremities Exam Extremities exam: Present: normal inspection - Back Exam Back exam: Present: normal inspection - Neurological Exam Neurological exam: Present: alert, oriented X3 - Psychiatric Psychiatric exam: Present: normal affect, normal mood, suicidal ideation - Skin Skin exam: Present: warm, dry, intact, normal color. Absent: rash ED Course Vital Signs 08/28/20 08/28/20 08/29/20 18:37 21:40 09:19 Temperature 98.6 F 98.8 F Pulse Rate 96 H 81 Respiratory 19 18 18 Rate Blood Pressure Blood Pressure 128/84 137/90 [Right] O2 Sat by Pulse 99 98 100 Oximetry 08/29/20 08/30/20 08/30/20 19:50 05:10 10:26 Temperature 98.3 F 98.3 F Pulse Rate 77 71 90 Respiratory 18 16 18 Rate Blood Pressure Blood Pressure 107/47 101/60 129/80 [Right] O2 Sat by Pulse 99 98 100 Oximetry 08/30/20 08/31/20 08/31/20 20:09 01:00 07:54 Temperature 97.9 F 98.2 F 98.6 F Pulse Rate 80 78 70 Respiratory 18 16 20 Rate Blood Pressure 113/56 Blood Pressure 122/65 127/82 [Right] O2 Sat by Pulse 98 100 98 Oximetry - Reevaluation(s) Reevaluation #1: 09/02/20 21:34 According to review of electronic record, patient was ultimately cleared by psychiatry after 3 days of treatment in the emergency department. Patient discharged home. ED Medical Decision Making - Lab Data Result diagrams: 08/28/20 19:25 08/29/20 15:20 Laboratory Results - last 24 hr 08/28/20 08/28/20 08/28/20 19:25 19:25 19:25 WBC 6.2 RBC 4.91 Hgb 13.9 Hct 41.7 MCV 85 MCH 28 MCHC 33 RDW 13.8 Plt Count 203 Lymph % (Auto) 31.7 [place] % (Auto) 13.4 H Eos % (Auto) 2.6 Baso % (Auto) 0.3 Lymph # (Auto) 2.0 [place] # (Auto) 0.8 Eos # (Auto) 0.2 Baso # (Auto) 0.0 Seg Neutrophils % 52.0 Seg Neutrophils # 3.2 Sodium Potassium Chloride Carbon Dioxide Anion Gap BUN Creatinine Estimated GFR BUN/Creatinine Ratio Glucose Calcium Total Bilirubin AST ALT Alkaline Phosphatase Total Protein Albumin Albumin/Globulin Ratio TSH Urine Color Urine Turbidity Urine pH Ur Specific [place] Urine Protein Urine Glucose (UA) Urine Ketones Urine Blood Urine Nitrite Urine Bilirubin Urine Urobilinogen Ur Leukocyte Esterase Urine WBC (Auto) Urine RBC (Auto) Urine Mucus Urine Sperm Salicylates < 0.3 L Urine Opiates Screen Urine Methadone Screen Acetaminophen 5.0 L Ur Barbiturates Screen Ur Phencyclidine Scrn Ur Amphetamines Screen U Benzodiazepines Scrn Urine Cocaine Screen U Marijuana (THC) Screen Drugs of Abuse Note 08/28/20 08/28/20 08/28/20 19:25 19:25 20:31 WBC RBC Hgb Hct MCV MCH MCHC RDW Plt Count Lymph % (Auto) [place] % (Auto) Eos % (Auto) Baso % (Auto) Lymph # (Auto) [place] # (Auto) Eos # (Auto) Baso # (Auto) Seg Neutrophils % Seg Neutrophils # Sodium 133 L Potassium 3.3 L Chloride 96.0 L Carbon Dioxide 24 Anion Gap 16 BUN 18 Creatinine 1.0 Estimated GFR > 60 BUN/Creatinine Ratio 18 Glucose 92 Calcium 9.6 Total Bilirubin 0.40 AST 41 H ALT 42 Alkaline Phosphatase 82 Total Protein 8.1 Albumin 4.5 Albumin/Globulin Ratio 1.3 TSH 2.920 Urine Color Yellow Urine Turbidity Slightly-cloudy Urine pH 5.0 Ur Specific [place] 1.029 Urine Protein 30 mg/dl Urine Glucose (UA) Neg Urine Ketones Neg Urine Blood Neg Urine Nitrite Neg Urine Bilirubin Neg Urine Urobilinogen 2.0 Ur Leukocyte Esterase Neg Urine WBC (Auto) 5.0 Urine RBC (Auto) 3.0 Urine Mucus 3+ Urine Sperm 3+ Salicylates Urine Opiates Screen Urine Methadone Screen Acetaminophen Ur Barbiturates Screen Ur Phencyclidine Scrn Ur Amphetamines Screen U Benzodiazepines Scrn Urine Cocaine Screen U Marijuana (THC) Screen Drugs of Abuse Note 08/28/20 20:31 WBC RBC Hgb Hct MCV MCH MCHC RDW Plt Count Lymph % (Auto) [place] % (Auto) Eos % (Auto) Baso % (Auto) Lymph # (Auto) [place] # (Auto) Eos # (Auto) Baso # (Auto) Seg Neutrophils % Seg Neutrophils # Sodium Potassium Chloride Carbon Dioxide Anion Gap BUN Creatinine Estimated GFR BUN/Creatinine Ratio Glucose Calcium Total Bilirubin AST ALT Alkaline Phosphatase Total Protein Albumin Albumin/Globulin Ratio TSH Urine Color Urine Turbidity Urine pH Ur Specific [place] Urine Protein Urine Glucose (UA) Urine Ketones Urine Blood Urine Nitrite Urine Bilirubin Urine Urobilinogen Ur Leukocyte Esterase Urine WBC (Auto) Urine RBC (Auto) Urine Mucus Urine Sperm Salicylates Urine Opiates Screen Negative Urine Methadone Screen Negative Acetaminophen Ur Barbiturates Screen Negative Ur Phencyclidine Scrn Negative Ur Amphetamines Screen Negative U Benzodiazepines Scrn Negative Urine Cocaine Screen Positive U Marijuana (THC) Screen Negative Drugs of Abuse Note Disclamer - Medical Decision Making Mr. Apple is a 39-year-old male with history of PTSD, depression, schizoaffective disorder, polysubstance abuse who presents with suicidal ideation with plan to jump into traffic. Patient was cleared by mental health team earlier this morning. Patient is medically clear for psychiatric care. Work-up notable for mild hypo kalemia. UDS positive for cocaine. Patient received p.o. potassium repletion. He does not have any physical complaints. Awaiting treatment recommendations by mental health team. Mental health a ssessor desire for psychiatry team to reevaluate patient in morning considering patient has had multiple suicide attempts in the past.. Critical care attestation.: If time is entered above; I have spent that time in minutes in the direct care of this critically ill patient, excluding procedure time. ED Disposition Clinical Impression: Suicidal ideation, Schizoaffective disorder, Cocaine abuse, Depression Disposition: DC-01 TO HOME OR SELFCARE Is pt being admited?: No Does the pt Need Aspirin: No Condition: Stable Additional Instructions: OUTPATIENT MENTAL HEALTH RESOURCES [facility], [facility] Fabiola Antonio MD: [address] [place] [address] [place] [address] [facility]: [facility] [address] [place] [address] [place] [address] [phone] [facility]: [facility]: [address] [facility] [place] [address] [facility] [address] [facility]: Melo Alves MD: [address] [facility] [id number] [facility]: [address] [place] [address] [phone] [place] CRISIS AND ACCESS LINE:
[2020-08-28] MEDS: POTASSIUM CHLORIDE ER 20 MEQ TAB PO SCH (22:54)
[2020-08-29] MEDS: POTASSIUM CHLORIDE ER 20 MEQ TAB PO SCH ×2 (10:28→23:49)
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
[2020-08-29] MEDS ORDERED: SODIUM CHLORIDE 0.9% 1000 ML 1,000 ML IV ONE (11:56)
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
[2020-08-29] MEDS ORDERED: NON-FORMULARY EACH (Fluoxetine Hcl [Prozac] 40 MG Capsule) PO SCH (12:00)
[2020-08-29] MEDS: DIVALPROEX DR 125 MG TAB PO SCH ×2 (12:42→22:47)
[2020-08-29] MEDS: FLUoxetine 20 MG CAP PO SCH (12:42)
[2020-08-29 16:19] LABS: BUN/Creatinine Ratio 14; Blood Urea Nitrogen 15 mg/dL (9-20); Hemolysis Index 17
[2020-08-29] MEDS: traZODone 50 MG TAB PO SCH (22:48)
--- NOTE | 2020-08-30 10:32 | Progress Note ---
Subjective - Reason for Consult Consult date: 08/30/20 Reason for consult: SI - Chief Complaint Chief complaint: The patient was seen today, he still endorses SI, and hallucinations having visual hallucinations of him to cutting his wrist. The patient also says he has night terrors. REVIEW OF SYSTEMS Constitutional: Negative for weight loss ENT: Negative for stridor Respiratory: Negative for cough or hemoptysis All other systems reviewed and are negative MENTAL STATUS EXAMINATION General Appearance and Behavior: Age appropriate, good hygiene, not wearing appropriate clothes, fair eye contact, cooperative, calm Cooperation: cooperative, engaging Psychomotor Behavior: Psychomotor normal Mood: Depressed Affect and affective range: Congruent with stated mood Thought Process: Goal directed Speech: Normal tone and pace Thought Content Suicidal Ideation: Yes Homicidal Ideation: Yes Hallucinations: Denies Delusions: None elicited Impulse Control: Impaired Insight and Judgment: Poor insight and judgment Memory: Normal Attention: Undivided attention impaired Orientation: A/o x 3 Assessment and Plan (1) Major Depressive Disorder (2) Cocaine Dependence with Substance Induced Mood Treatment Plan [address] 250mg po BID Continue Prozac 40mg po daily Trazodone 50mg po qhs Start Olanzapine 5mg po daily Sitter: defer to primary Medical: Per primary Disposition: Recommend acute psychiatric inpatient treatment. Will follow. thank you Case staffed with Dr. Denney Mental Status Exam - Vital signs Last Vital Signs Temp 98.3 F 08/30/20 05:10 Pulse 90 08/30/20 10:26 Resp 18 08/30/20 10:26 BP 129/80 08/30/20 10:26 Pulse Ox 100 08/30/20 10:26
--- NOTE | 2020-08-30 11:09 | Event Note ---
Date: 08/30/20 Patient is calm and cooperative. Repeat labs from the initial labs show there is improvement of the sodium. Potassium levels are normal. Patient is now medically cleared completely. Please see note from our mental health staff below. Psychiatry Progress Note Patient Name: ANNI GUERRERO Date of : 84 Patient Status: Emergency Emergency Provider: JULIO CESARFRANK Date: 08/30/20 10:31 Initialization Date: 08/30/20 10:31 Subjective - Reason for Consult Consult date: 08/30/20 Reason for consult: SI - Chief Complaint Chief complaint: The patient was seen today, he still endorses SI, and hallucinations having visual hallucinations of him to cutting his wrist. The patient also says he has night terrors. REVIEW OF SYSTEMS Constitutional: Negative for weight loss ENT: Negative for stridor Respiratory: Negative for cough or hemoptysis All other systems reviewed and are negative MENTAL STATUS EXAMINATION General Appearance and Behavior: Age appropriate, good hygiene, not wearing appropriate clothes, fair eye contact, cooperative, calm Cooperation: cooperative, engaging Psychomotor Behavior: Psychomotor normal Mood: Depressed Affect and affective range: Congruent with stated mood Thought Process: Goal directed Speech: Normal tone and pace Thought Content Suicidal Ideation: Yes Homicidal Ideation: Yes Hallucinations: Denies Delusions: None elicited Impulse Control: Impaired Insight and Judgment: Poor insight and judgment Memory: Normal Attention: Undivided attention impaired Orientation: A/o x 3 Assessment and Plan (1) Major Depressive Disorder (2) Cocaine Dependence with Substance Induced Mood Treatment Plan [address] 250mg po BID Continue Prozac 40mg po daily Trazodone 50mg po qhs Start Olanzapine 5mg po daily Sitter: defer to primary Medical: Per primary Disposition: Recommend acute psychiatric inpatient treatment. Will follow. thank you Case staffed with Dr. Denney
[2020-08-30] MEDS: DIVALPROEX DR 125 MG TAB PO SCH (11:37)
[2020-08-30] MEDS: FLUoxetine 20 MG CAP PO SCH (11:37)
[2020-08-30] MEDS: DIVALPROEX DR 250 MG TAB PO SCH (21:35)
[2020-08-30] MEDS: traZODone 50 MG TAB PO SCH (21:36)
[2020-08-31 07:58] VITALS: BP 127/82
--- NOTE | 2020-08-31 10:20 | Progress Note ---
Subjective - Reason for Consult Consult date: 08/31/20 Reason for consult: MHE Requesting physician: CAROL HARRELL - Chief Complaint Chief complaint: Psych The patient was seen today, denies SI, HI, says he spoke with family and an outpt rehba has been set up for cocaine/crack use. REVIEW OF SYSTEMS Constitutional: Negative for weight loss ENT: Negative for stridor Respiratory: Negative for cough or hemoptysis All other systems reviewed and are negative MENTAL STATUS EXAMINATION General Appearance and Behavior: Age appropriate, good hygiene, not wearing appropriate clothes, fair eye contact, cooperative, calm Cooperation: cooperative, engaging Psychomotor Behavior: Psychomotor normal Mood: good Affect and affective range: Congruent with stated mood Thought Process: Goal directed Speech: Normal tone and pace Thought Content Suicidal Ideation: NO Homicidal Ideation: NO Hallucinations: Denies Delusions: None elicited Impulse Control: Impaired Insight and Judgment: Poor insight and judgment Memory: Normal Attention: Undivided attention impaired Orientation: A/o x 3 Assessment and Plan (1) Major Depressive Disorder (2) Cocaine Dependence with Substance Induced Mood Treatment Plan [address] 250mg po BID Continue Prozac 40mg po daily Trazodone 50mg po qhs Start Olanzapine 5mg po daily Sitter: defer to primary Medical: Per primary Disposition: Do not recommend acute psychiatric inpatient treatment. Will sign off. thank you Case staffed with Dr. Denney Mental Status Exam - Vital signs Last Vital Signs Temp 98.6 F 08/31/20 07:54 Pulse 70 08/31/20 07:54 Resp 20 08/31/20 07:54 BP 127/82 08/31/20 07:54 Pulse Ox 98 08/31/20 07:54
--- NOTE | 2020-08-31 10:48 | Event Note ---
Date: 08/31/20 S: Patient states he is "not suicidal anymore." States he is ready to go home. O: Vital signs stable. Patient calm and cooperative. A: Major depressive disorder, cocaine dependence P: 1013; awaiting inpatient psychiatric placement
[2020-08-31] MEDS: DIVALPROEX DR 250 MG TAB PO SCH (11:04)
[2020-08-31] MEDS: FLUoxetine 20 MG CAP PO SCH (11:04)
== END 2020-08-31 14:20 | disposition home or self-care (01) ==
LOC: EEVIPCON 17:58 → ED 17:58
DX: R45.851 Suicidal ideations (principal); F20.9 Schizophrenia, unspecified; Z20.822 Contact with and (suspected) exposure to COVID-19; F14.10 Cocaine abuse, uncomplicated; I50.9 Heart failure, unspecified; M19.90 Unspecified osteoarthritis, unspecified site; F41.9 Anxiety disorder, unspecified; F17.200 Nicotine dependence, unspecified, uncomplicated; F12.90 Cannabis use, unspecified, uncomplicated; Z88.8 Allergy status to other drugs, medicaments and biological substances; Z79.899 Other long term (current) drug therapy
CPT/HCPCS: 36415; 80048; 80053; 80307; 81001; 82550; 82553; 84443; 85025; 96360; 99284; J3486; J7030; U0003; 80320; 96372; G0480

== ENCOUNTER 2021-06-11 05:54 | Emergency (ER) | payer MEDICAID ==
[2021-06-11 07:17] LABS: Basophils % (Auto) 0.5 % (0.0-1.8); Eosinophils # (Auto) 0.2 K/mm3 (0.0-0.4); Eosinophils % (Auto) 3.1 % (0.0-4.3); Hematocrit 39.4 % (35.5-45.6); Hemoglobin 12.8 gm/dl (11.8-15.2); Lymphocytes # (Auto) 2.1 K/mm3 (1.2-5.4); Lymphocytes % (Auto) 26.7 % (13.4-35.0); Mean Corpuscular HGB Conc 32 % (32-34); Mean Corpuscular Volume 85 fl (84-94); Monocytes # (Auto) 0.6 K/mm3 (0.0-0.8); Monocytes % (Auto) 8.3 % (0.0-7.3); Platelet Count 346 K/mm3 (140-440); Red Blood Count 4.65 M/mm3 (3.65-5.03); Red Cell Distribution Width 15.5 % (13.2-15.2)
[2021-06-11 07:31] LABS: BUN/Creatinine Ratio 23; Blood Urea Nitrogen 21 mg/dL (9-20); Calcium 9.1 mg/dL (8.4-10.2); Hemolysis Index 15
--- NOTE | 2021-06-11 09:38 | Consultation ---
History of Present Illness - Reason for Consult Consult date: 06/11/21 Reason for consult: suicidal ideation - History of Present Psychiatric Illness The patient is a 40 year old male with history of schizoaffective disorder who presents to the ED with suicidal ideation. In my encounter with the patient, he is calm, alert and oriented x 3. The patient reports having worsening depression in the past 2 weeks. He endorses suicidal ideation with no plan and commanding auditory hallucination " voices telling me to hurt myself." Diagnoses: Schizoaffective Suicide attempts or Self-harm behavior: Yes Prior psychiatric hospitalizations: Yes Substance Abuse history: Cocaine, marijuana Previous psychiatric medications tried: [facility] Outpatient treatment: Unknown PAST MEDICAL HISTORY: unknown Family Psychiatric History: None reported or documented SOCIAL HISTORY Marital Status: Single Living Arrangements:Homeless Employment Status: unemployed Access to guns/weapons: Denies Education: 11th grade History of Abuse: none reported Legal History: none reported REVIEW OF SYSTEMS Constitutional: Negative for weight loss ENT: Negative for stridor Respiratory: Negative for cough or hemoptysis All other systems reviewed and are negative MENTAL STATUS EXAMINATION General Appearance and Behavior: Age appropriate, good hygiene, wearing appropriate clothes, calm, cooperative Cooperation: Participating/engaged Psychomotor Behavior: Normal Mood: Depression Affect and affective range: congruent with mood Thought Process: Goal oriented Thought Content: Suicidal Speech: Normal Suicidal Ideation: Yes Homicidal Ideation: Denies Hallucinations: Auditory Delusions: None elicited Impulse Control: Questionable Insight and Judgment: Limited insight and judgment, Memory: Normal Attention: Divided Orientation: Alert, oriented Assessment and Plan (1)Schizoaffective disorder Current Visit: Yes Status: Acute 1013 Treatment Plan Risperidone 1mg po BID The patient needs to follow up with his outpatient psychiatrist and therapist. Continue home meds Disposition: Recommend psychiatric inpatient admission at this time. Will follow. Thanks Case staffed with Dr. Denney Medications and Allergies Medications and Allergies Allergies Allergy/AdvReac Type Severity Reaction Status Date / Time sertraline [From Zoloft] Allergy Hives Verified 08/28/20 08:22 Home Medications Medication Instructions Recorded Confirmed Last Taken Type Benztropine [Cogentin] 1 mg PO BID 12/28/18 06/12/19 2 Days Ago History ~03/09/19 FLUoxetine HCL [PROzac] 40 mg PO QDAY 12/28/18 06/12/19 2 Days Ago History ~03/09/19 busPIRone [Buspar] 15 mg PO DAILY 12/28/18 06/12/19 2 Days Ago History ~03/09/19 traZODone [Desyrel] 200 mg PO HS 12/28/18 06/12/19 2 Days Ago History ~03/09/[address] [DepaKOTE DR] 125 mg PO BID #60 tablet 08/28/20 Unknown Rx FLUoxetine [PROzac] 10 mg PO QDAY #30 tablet 08/28/20 Unknown Rx traZODone [Desyrel] 50 mg PO QHS #30 tab 08/28/20 Unknown Rx Mental Status Exam - Vital signs Last Vital Signs Temp 97.3 F L 06/11/21 06:38 Pulse 101 H 06/11/21 06:38 Resp 18 06/11/21 06:38 BP 141/89 06/11/21 06:38 Pulse Ox 99 06/11/21 06:38 Results Result Diagrams: 06/11/21 06:30 06/11/21 06:30 Abnormal lab results 06/11/21 06/11/21 06/11/21 Range/Units 06:30 06:30 06:30 RDW 15.5 H (13.2-15.2) % Sumner % (Auto) 8.3 H (0.0-7.3) % Sodium 136 L (137-145) mmol/L Chloride 97.7 L (98-107) mmol/L BUN 21 H (9-20) mg/dL Glucose 107 H (75-100) mg/dL Salicylates < 0.3 L (2.8-20.0) mg/dL Acetaminophen (10.0-30.0) ug/mL 06/11/21 Range/Units 06:30 RDW (13.2-15.2) % Sumner % (Auto) (0.0-7.3) % Sodium (137-145) mmol/L Chloride (98-107) mmol/L BUN (9-20) mg/dL Glucose (75-100) mg/dL Salicylates (2.8-20.0) mg/dL Acetaminophen 5.0 L (10.0-30.0) ug/mL All other labs normal.
[2021-06-11] MEDS ORDERED: risperiDONE 1 MG TAB PO SCH (10:00)
--- NOTE | 2021-06-11 10:07 | Emergency Department Report ---
ED Psych HPI - General Chief Complaint: Psych Stated Complaint: SI Time Seen by Provider: 06/11/21 06:16 Source: patient, family Mode of arrival: Stretcher - History of Present Illness Initial Comments: Patient is 40 years old male with history of schizoaffective disorder. Patient presented to the ER complaining of depression and suicidal ideation. Patient stated that he is hearing voices asking him to hurt himself. Patient does not have a specific plan. Patient denied visual hallucination. No homicidal ideation. MD Complaint: suicidal ideation, feels depressed -: days(s) Associated Psychiatric Symptoms: depression, suicidal ideation, auditory hallucinations Quality: constant - Related Data Home Medications Medication Instructions Recorded Confirmed Last Taken Benztropine [Cogentin] 1 mg PO BID 12/28/18 06/12/19 2 Days Ago ~03/09/19 FLUoxetine HCL [PROzac] 40 mg PO QDAY 12/28/18 06/12/19 2 Days Ago ~03/09/19 busPIRone [Buspar] 15 mg PO DAILY 12/28/18 06/12/19 2 Days Ago ~03/09/19 traZODone [Desyrel] 200 mg PO HS 12/28/18 06/12/19 2 Days Ago ~03/09/19 Previous Rx's Medication Instructions Recorded Last Taken Type Divalproex Dr [DepaKOTE DR] 125 mg PO BID #60 tablet 08/28/20 Unknown Rx FLUoxetine [PROzac] 10 mg PO QDAY #30 tablet 08/28/20 Unknown Rx traZODone [Desyrel] 50 mg PO QHS #30 tab 08/28/20 Unknown Rx Allergies Allergy/AdvReac Type Severity Reaction Status Date / Time sertraline [From Zoloft] Allergy Hives Verified 08/28/20 08:22 ED Review of Systems ROS: Stated complaint: SI Other details as noted in HPI Comment: All other systems reviewed and negative Constitutional: denies: chills, fever Respiratory: denies: cough, shortness of breath, SOB with exertion, SOB at rest Cardiovascular: denies: chest pain, palpitations Gastrointestinal: denies: abdominal pain, nausea, vomiting Neurological: denies: headache Psychiatric: depression, auditory hallucinations, suicidal thoughts. denies: visual hallucinations, homicidal thoughts ED Past Medical Hx - Past Medical History Previous Medical History?: Yes Hx Congestive Heart Failure: Yes Hx Pulmonary Embolism: No Hx GERD: No Hx Renal Disease: No Hx Sickle Cell Disease: No Hx Arthritis: Yes Hx Headaches / Migraines: No Hx Psychiatric Treatment: Yes (Anxiety, PTSD, Schizophrenia, Depression) - Surgical History Past Surgical History?: No - Social History Smoking Status: Current Every Day Smoker Substance Use Type: Cocaine, Marijuana - Medications Home Medications: Home Medications Medication Instructions Recorded Confirmed Last Taken Type Benztropine [Cogentin] 1 mg PO BID 12/28/18 06/12/19 2 Days Ago History ~03/09/19 FLUoxetine HCL [PROzac] 40 mg PO QDAY 12/28/18 06/12/19 2 Days Ago History ~03/09/19 busPIRone [Buspar] 15 mg PO DAILY 12/28/18 06/12/19 2 Days Ago History ~03/09/19 traZODone [Desyrel] 200 mg PO HS 12/28/18 06/12/19 2 Days Ago History ~03/09/[address] [DepaKOTE DR] 125 mg PO BID #60 tablet 08/28/20 Unknown Rx FLUoxetine [PROzac] 10 mg PO QDAY #30 tablet 08/28/20 Unknown Rx traZODone [Desyrel] 50 mg PO QHS #30 tab 08/28/20 Unknown Rx ED Physical Exam - General Limitations: No Limitations General appearance: alert, in no apparent distress - Head Head exam: Present: atraumatic, normocephalic, normal inspection - Eye Eye exam: Present: normal appearance - ENT ENT exam: Present: normal exam, normal orophraynx, mucous membranes moist - Neck Neck exam: Present: normal inspection, full ROM. Absent: tenderness, meningismus - Respiratory Respiratory exam: Present: normal lung sounds bilaterally - Cardiovascular Cardiovascular Exam: Present: regular rate, normal rhythm, normal heart sounds - GI/Abdominal GI/Abdominal exam: Present: soft, normal bowel sounds. Absent: distended, tenderness, guarding, rebound, rigid, organomegaly, mass, pulsatile mass, hernia - Extremities Exam Extremities exam: Present: normal inspection, full ROM, normal capillary refill. Absent: tenderness - Back Exam Back exam: Present: normal inspection, full ROM. Absent: CVA tenderness (R), CVA tenderness (L) - Neurological Exam Neurological exam: Present: alert, oriented X3, CN II-XII intact, normal gait, reflexes normal - Psychiatric Psychiatric exam: Present: suicidal ideation. Absent: homicidal ideation - Skin Skin exam: Present: warm, intact, normal color ED Course Vital Signs 06/11/21 06/11/21 06/11/21 06:20 06:21 06:38 Temperature 97.9 F 97.3 F L Pulse Rate 98 H 101 H Respiratory 15 18 Rate Blood Pressure 126/86 141/89 [Right] O2 Sat by Pulse 98 98 99 Oximetry 06/11/21 06/11/21 15:30 20:00 Temperature 98.5 F Pulse Rate 108 H Respiratory 18 Rate Blood Pressure 120/68 [Right] O2 Sat by Pulse 97 98 Oximetry ED Medical Decision Making - Lab Data Result diagrams: 06/11/21 06:30 06/11/21 06:30 - Medical Decision Making Patient is 40 years old male with history of schizoaffective disorder. Patient presented to the ER complaining of depression and suicidal ideation. Patient stated that he is hearing voices asking him to hurt himself. Patient does not have a specific plan. Patient denied visual hallucination. No homicidal ideation. Labs reviewed and is unremarkable however urinalysis and UDS is still pending. Patient is medically cleared to be evaluated by psychiatric team. Critical care attestation.: If time is entered above; I have spent that time in minutes in the direct care of this critically ill patient, excluding procedure time. ED Disposition Clinical Impression: Suicidal ideation, Depression Disposition: [address] [place] [address] Is pt being admited?: No Condition: Stable Referrals: PRIMARY CARE, [Primary Care Provider] - 3-5 Days
[2021-06-11 16:45] LABS: Amphetamine Screen,Urine Negative; Benzodiazepines Screen,Urine Negative; Cannabinoid Screen,Urine Negative; Methadone Screen,Urine Negative; Opiate Screen,Urine Negative
[2021-06-11 16:46] LABS: Mucus,Urine 3+ /HPF
[2021-06-11 16:48] LABS: Color,Urine Yellow (Yellow)
[2021-06-11 16:49] LABS: Cocaine Screen,Urine Positive
[2021-06-11 16:52] LABS: Bilirubin,Urine Negative (Negative)
[2021-06-11 16:53] LABS: Blood,Urine Negative (Negative); Urobilinogen,Urine < 2.0 mg/dL (<2.0)
[2021-06-11 20:01] VITALS: BP 120/68
== END 2021-06-11 23:14 ==
LOC: EEVIPCON 05:54 → ED 05:54
DX: R45.851 Suicidal ideations (principal); F32.A Depression, unspecified; I50.9 Heart failure, unspecified; M19.90 Unspecified osteoarthritis, unspecified site; F17.200 Nicotine dependence, unspecified, uncomplicated; Z98.890 Other specified postprocedural states; Z79.899 Other long term (current) drug therapy; Z91.09 Other allergy status, other than to drugs and biological substances; Z20.822 Contact with and (suspected) exposure to COVID-19
CPT/HCPCS: 36415; 80048; 80307; 81001; 85025; 99285; U0003; 80320; G0480